=== PATIENT | male | born 1945 | race Caucasian/White ===

== ENCOUNTER 2022-08-03 14:33 | Inpatient (IN) ==
[2022-08-03] MEDS ORDERED: SODIUM CHLORIDE 0.9% 1000ML 1,000 ML IV SCH (15:00)
[2022-08-03] MEDS ORDERED: FAMOTIDINE 20MG IV PUSH 20 MG/5 ML SYR IV STA (15:21)
--- NOTE | 2022-08-03 15:26 | Emergency Department Note ---
Impression & Plan Syncope and collapse, Left rib fracture, Gastric distention ED Provider Note Provider: Mariano Kim MD DATE OF SERVICE: 08/03/2022 CHIEF COMPLAINT: Syncope, nausea and vomiting, weakness HISTORY OF PRESENT ILLNESS: Patient is a 77-year-old gentleman history distantly of colon cancer status postresection small bowel obstruction presenting here today with his . Fortunately since September of last year has been dealing with stooling issues and having frequent due to continuous diarrhea. Reports following with GI and was scheduled to have a colonoscopy today. Was in the midst of a 2-day bowel prep for this. Been using Gatorade and propylene glycol as well as Dulcolax. Has not eaten since Sunday afternoon. This morning even while hydrating but not having much stooling overnight, became lightheaded and syncopized falling to the ground striking his left head and left chest on the ground. states he was only unconscious for a few seconds but he was a bit confused for. After he awoke. Was able to arouse him and reorient him and then discussed with GI who referred him here for evaluation. Reports some stomach gurgling and cramping with some heartburn symptoms. Denies significant headache or pain in the extremities. Fairly generally weak and a bit cold. No sick cont acts reported. PAST MEDICAL HISTORY: As noted above MEDICATIONS: Reviewed home medications and has been on bowel prep SOCIAL HISTORY: and lives at home with fatigued in appearance PHYSICAL EXAM: GENERAL: alert and oriented in no acute distress on stretcher Head: normocephalic with a slight area of contusion just above the left ear without any mastoid tenderness or crepitus appreciated. EYES: No injection, discharge or icterus. PERRL, EOMI. NECK: Trachea midline. Supple without significant midline tenderness ENT: Mucous membranes pink and moist. Pharynx without erythema or exudate. LUNGS: Airway patent. No retractions. Breath sounds clear with good air entry bilaterally. HEART: Regular rate and rhythm. Some left-sided chest wall tenderness without crepitus or obvious bruising or deformity ABDOMEN: Soft and without significant guarding or rebound without significant tenderness. SKIN: Acyanotic, warm, dry, without rashes EXTREMITIES: Without swelling, tenderness or deformity except for some slight tenderness of the left shoulder with good range of motion however no obvious deformity. NEUROLOGICAL: No focal deficits. No aphasia. No facial droop or slurred speech. EK bpm sinus rhythm with first-degree AV block. No PVC or PAC noted. No acute ST segment elevation or depression with a QTc of 424. CONTINUOUS CARDIAC MONITORING: was ordered and showed a heart rate of 70s-80s bpm in normal sinus rhythm GCS 15. Patient's laboratory studies and imaging reviewed. Differential includes traumatic injury, infection, dehydration, metabolic abnormality, hypo/hyperglycemia, electrolyte disturbance, anemia, hypoxia, cardiac sources, as well as other pathologies. IMPRESSION/MEDICAL DECISION MAKING: History of continuous diarrhea on a 2-day bowel prep seems to have syncopized and became too weak after this this morning. Has not eaten in several days. Given some IV fluids as well as basic blood work checked. Given some Pepcid for heartburn. EKG and basic labs obtained. Given his fall did complete a CT of the head as well as the left chest was having some tenderness and abdominal CT given his abdominal complaints. Lower suspicion for obstruction question if he is just dehydrated and rundown from the bowel prep. No infectious symptoms reported. Basic blood work including troponin and magnesium will be completed. Given some IV fluids as well as Pepcid for symptoms. COVID checked. Nonbloody vomiting and diarrhea reported and doubt significant anemia. Chest x-ray and x- ray of the left shoulder obtained. Blood work without anemia but a leukocytosis of 15 nonspecific noted may be reactive from his vomiting and diarrhea. Mild hyponatremia of 133 with a creatinine elevated 1.5 today from baseline around 1.1. Negative COVID. Neg ative urinalysis. No signs of pancreatitis or hepatitis. No troponin elevation. CT head per radiology without acute intracranial pathology noted or bleeding. CT of the chest with left-sided third through sixth rib fractures without pneumothorax. Some esophageal inflammatory change as well as a distended stomach which the abdominal CT questions represents a low-grade chronic partial small bowel obstruction is noted. Patient is feeling somewhat better after fluid hydration. Given his multiple rib fractures with a syncope today likely induced from the bowel prep and question of a small bowel obstruction discussed with the hospitalist further care here at the hospital. Patient given some IV Tylenol but declines the need for stronger pain medicines at this point. Patient and updated. Hospitalist was comfortable keeping and discussed with general surgery who did not recommend any aggressive acute therapy or NG tube placement at this time given what appears to be some chronicity to the CT findings. DIAGNOSIS: Dehydration, fall, syncope, left-sided rib fractures, gastric distention DISPOSITION: Hospitalist will evaluate Patient was agreeable with this plan. Past Med/Surg History Medical History (Updated 08/03/22 @ 19:54 by Lali Wallace PA-C) Asthma BPH (benign prostatic hyperplasia) CKD (chronic kidney disease), stage III Colon cancer Essential tremor GERD (gastroesophageal reflux disease) HLD (hyperlipidemia) HTN (hypertension) SBO (small bowel obstruction) Surgical History (Updated 08/03/22 @ 19:54 by Lali Wallace PA-C) History of cholecystectomy History of cystoscopy History of partial colectomy sigmoid colectomy 1996 Hx of cataract extraction Hx of rotator cuff surgery Hx of transurethral resection of prostate Family History (Updated 08/03/22 @ 19:54 by Lali Wallace PA-C) Other Breast cancer Heart disease Social History (Updated 08/03/22 @ 18:55 by Lali Wallace PA-C) Smoking Status: Never smoker Hx Alcohol Use: No Hx Substance Use: No Preferred Language: Zambian marital status: Current Living Situation: Spouse Feels Safe at Home: Yes Allergies Allergies Allergy/AdvReac Type Severity Reaction Status Date / Time No Known Allergies Allergy Unverified 08/03/22 17:41 Home Meds Home Medications Medication Instructions Recorded Confirmed amlodipine 5 mg tablet 5 mg PO DAILY 08/03/22 08/03/22 aspirin 81 mg tablet,delayed 81 mg PO SUFR 08/03/22 08/03/22 release atorvastatin 20 mg tablet 20 mg PO DAILY 08/03/22 08/03/22 finasteride 5 mg tablet 5 mg PO DAILY 08/03/22 08/03/22 losartan 25 mg tablet 25 mg PO DAILY 08/03/22 08/03/22 omega 2-lgl-hpl-fish oil 1,000 mg 1 cap PO DAILY 08/03/22 08/03/22 (120 mg-180 mg) capsule (Fish Oil) omeprazole 20 mg capsule,delayed 20 mg PO DAILY 08/03/22 08/03/22 release tamsulosin 0.4 mg capsule 0.4 mg PO DAILY 08/03/22 08/03/22 trazodone 50 mg tablet 100 mg PO HS 08/03/22 08/03/22 Results & Data (ED) Vital Signs Vital Signs - 24 hr 08/03/22 14:35 08/03/22 15:40 08/03/22 15:40 Temperature 36.8 C Temperature Source Temporal Artery Scan Pulse Rate 94 H 81 Pulse Rate [Apical] 83 Pulse Rhythm Regular Pulse Rhythm [Apical] Regular Pulse Strength [Apical] Normal Respiratory Rate 16 16 16 Respiratory Effort / Characteristics Non-Labored Spontaneous Non-Labored Spontaneous Respiratory Depth Normal Normal Respiratory Pattern Regular Blood Pressure 171/65 H Blood Pressure [Left Arm] 154/65 H Blood Pressure Mean 100 Blood Pressure Mean [Left Arm] 94 Blood Pressure Position Sitting Blood Pressure Position [Left Arm] Lying Pulse Oximetry 97 97 96 Oxygen Delivery Method Room Air Room Air Room Air Sepsis Recent Fever Within 48 Hours No Sepsis New/Unexplained Change in Mental Status No Sepsis Action Taken by Nursing No Action Required 08/03/22 15:42 Temperature Temperature Source Pulse Rate 80 Pulse Rate [Apical] Pulse Rhythm Pulse Rhythm [Apical] Pulse Strength [Apical] Respiratory Rate Respiratory Effort / Characteristics Respiratory Depth Respiratory Pattern Blood Pressure Blood Pressure [Left Arm] Blood Pressure Mean Blood Pressure Mean [Left Arm] Blood Pressure Position Blood Pressure Position [Left Arm] Pulse Oximetry Oxygen Delivery Method Sepsis Recent Fever Within 48 Hours Sepsis New/Unexplained Change in Mental Status Sepsis Action Taken by Nursing Laboratory Data 08/03/22 15:15 08/03/22 15:15 Lab Results 08/03/22 08/03/22 08/03/22 Range/Units 15:15 15:15 15:15 WBC 15.73 H (4.8-10.8) K/ul RBC 5.14 (4.70-6.10) M/uL Hgb 15.7 (14.0-18.0) g/dl Hct 45.0 (42.0-52.0) % MCV 87.5 (80.0-100.0) fL MCH 30.5 (25.0-34.0) pg MCHC 34.9 (32.0-36.0) g/dL RDW Std Deviation 39.9 (36.4-46.3) fL RDW Coeff of Dayanna 12.5 (11.5-14.5) % Plt Count 220 (130-400) K/uL MPV 9.6 (9.4-12.4) fL Immature Gran % (Auto) 0.4 % Neut % (Auto) 92.5 % Lymph % (Auto) 2.5 % Harlan % (Auto) 4.5 % Eos % (Auto) 0.0 % Baso % (Auto) 0.1 % Neut # (Auto) 14.54 H (1.40-6.50) K/uL Lymph # (Auto) 0.40 L (1.2-3.4) K/uL Harlan # (Auto) 0.70 H (0.11-0.59) K/uL Eos # (Auto) 0.00 (0-0.50) K/uL Baso # (Auto) 0.02 (0-0.2) K/uL Immature Gran # (Auto) 0.07 (0.01-0.20) K/uL Sodium 133 L (136-145) mmol/L Potassium 4.2 (3.5-5.1) mmol/L Chloride 95 L (98-107) mmol/L Carbon Dioxide 22 (21-32) mmol/L Anion Gap 16 H (3-11) BUN 24 H (6-23) mg/dl Creatinine 1.57 H (0.6-1.4) mg/dl Est Cr Clr Drug Dosing 41.3 ml/min Est GFR ( Amer) 48.2 ml/min Est GFR (Non-Af Amer) 41.6 ml/min BUN/Creatinine Ratio 15.3 (10-20) Glucose 139 H (70-99(Fasting)) mg/dl Lactate (0.4-2.0) mmol/L Calcium 9.9 (8.6-10.3) mg/dl Magnesium 1.9 (1.7-2.4) mg/dl Total Bilirubin 0.9 (0.2-1.0) mg/dl AST 25 (13-39) U/L ALT 26 (7-52) U/L Alkaline Phosphatase 73 (34-104) U/L Troponin I High Sens 18.7 (0-20) pg/ml Total Protein 7.7 (6.0-8.3) gm/dl Albumin 4.6 (3.4-5.0) gm/dl Globulin 3.1 (2.5-4.0) gm/dl Albumin/Globulin Ratio 1.5 (0.9-2) Lipase 13 (11-82) U/L TSH 0.827 (0.300-4.500) uIu/ml Urine Color Urine Appearance (Clear) Urine pH (4.5-7.5) Ur Specific [place] (1.000-1.030) Urine Protein (Negative) Urine Glucose (UA) (Negative) Urine Ketones (Negative) Urine Blood (Negative) Urine Nitrite (Negative) Urine Bilirubin (Negative) Urine Urobilinogen (Negative) Ur Leukocyte Esterase (Negative) Urine WBC (Auto) (0-5) /hpf Urine RBC (Auto) (0-4) /hpf U Hyaline Cast (Auto) (0-5) /lpf U Epithel Cells (Auto) (0-5) /lpf Urine Bacteria (Auto) (Negative) SARS-CoV-2, RNA, NAAT (NEGATIVE) 08/03/22 08/03/22 08/03/22 Range/Units 15:15 15:30 15:52 WBC (4.8-10.8) K/ul RBC (4.70-6.10) M/uL Hgb (14.0-18.0) g/dl Hct (42.0-52.0) % MCV (80.0-100.0) fL MCH (25.0-34.0) pg MCHC (32.0-36.0) g/dL RDW Std Deviation (36.4-46.3) fL RDW Coeff of Dayanna (11.5-14.5) % Plt Count (130-400) K/uL MPV (9.4-12.4) fL Immature Gran % (Auto) % Neut % (Auto) % Lymph % (Auto) % [place] % (Auto) % Eos % (Auto) % Baso % (Auto) % Neut # (Auto) (1.40-6.50) K/uL Lymph # (Auto) (1.2-3.4) K/uL [place] # (Auto) (0.11-0.59) K/uL Eos # (Auto) (0-0.50) K/uL Baso # (Auto) (0-0.2) K/uL Immature Gran # (Auto) (0.01-0.20) K/uL Sodium (136-145) mmol/L Potassium (3.5-5.1) mmol/L Chloride (98-107) mmol/L Carbon Dioxide (21-32) mmol/L Anion Gap (3-11) BUN (6-23) mg/dl Creatinine (0.6-1.4) mg/dl Est Cr Clr Drug Dosing ml/min Est GFR ( Amer) ml/min Est GFR (Non-Af Amer) ml/min BUN/Creatinine Ratio (10-20) Glucose (70-99(Fasting)) mg/dl Lactate 1.8 (0.4-2.0) mmol/L Calcium (8.6-10.3) mg/dl Magnesium (1.7-2.4) mg/dl Total Bilirubin (0.2-1.0) mg/dl AST (13-39) U/L ALT (7-52) U/L Alkaline Phosphatase (34-104) U/L Troponin I High Sens (0-20) pg/ml Total Protein (6.0-8.3) gm/dl Albumin (3.4-5.0) gm/dl Globulin (2.5-4.0) gm/dl Albumin/Globulin Ratio (0.9-2) Lipase (11-82) U/L TSH (0.300-4.500) uIu/ml Urine Color Dark Yellow Urine Appearance Clear (Clear) Urine pH 5.0 (4.5-7.5) Ur Specific [place] 1.020 (1.000-1.030) Urine Protein Trace H (Negative) Urine Glucose (UA) Negative (Negative) Urine Ketones 2+ H (Negative) Urine Blood Negative (Negative) Urine Nitrite Negative (Negative) Urine Bilirubin Negative (Negative) Urine Urobilinogen Negative (Negative) Ur Leukocyte Esterase Negative (Negative) Urine WBC (Auto) 1-5 (0-5) /hpf Urine RBC (Auto) 0-4 (0-4) /hpf U Hyaline Cast (Auto) 10-30 H (0-5) /lpf U Epithel Cells (Auto) 20-30 H (0-5) /lpf Urine Bacteria (Auto) Negative (Negative) SARS-CoV-2, RNA, NAAT NEGATIVE (NEGATIVE) Administered Medications Sodium Chloride (Nss 1000ml) 1,000 mls @ 125 mls/hr IV .Q8H VIRGEN Stop: 08/03/22 22:59 Last Admin: 08/03/22 15:40 Dose: 125 mls/hr Documented By: ABDULLAHI Discontinued Medications Famotidine (Pepcid 20mg Iv Push) 20 mg in 5 mls @ 2.5 mls/min IV NOW STA Stop: 08/03/22 15:22 Last Admin: 08/03/22 15:40 Dose: 2.5 mls/min Documented By: ABDULLAHI Acetaminophen (Ofirmev) 1,000 mg in 100 mls @ 400 mls/hr IV NOW STA Stop: 08/03/22 18:07 Last Infusion: 08/03/22 18:24 Dose: 0 mls/hr Documented By: Admin: 08/03/22 18:02 Dose: 400 mls/hr Documented By: ABDULLAHI Pantoprazole Sodium 40 mg/ (Syringe) 10 mls @ 5 mls/min IV NOW ONE Stop: 08/03/22 18:29 Last Admin: 08/03/22 19:22 Dose: 5 mls/min Documented By: ABDULLAHI Ioversol (Optiray 350 100ml) 87 ml IV ONCE ONE Stop: 08/03/22 16:50 Last Admin: 08/03/22 16:50 Dose: 87 ml Documented By: TATE Imaging Data Radiologist's Impression: Chest X-Ray 08/03/22 14:57 XR chest 1V portable CLINICAL HISTORY: Weakness. Fall. COMPARISON STUDY: Chest radiograph July 27, [address] performed earlier today. FINDINGS: Lung volumes are mildly diminished. There is no pneumothorax or pleural effusion. Several acute nondisplaced left-sided rib fractures are better depicted on the chest CT performed earlier today. There is no evidence for pulmonary edema. There is no consolidation. IMPRESSION: Several acute nondisplaced left sided rib fractures better depicted on the chest CT performed earlier today. No pneumothorax. ACT 112: Negative or not required by law. Electronically signed by: Logan Hilton M.D. 08/03/2022 5:29 PM Abdomen/Pelvis CT 08/03/22 15:[address] WITH IV CONTRAST CT DOSE: HISTORY: syncope/fall, n/v, on bowel prep for colonoscopy TECHNIQUE: Multiaxial CT images of the abdomen and pelvis were performed following the use of intravenous contrast. A dose lowering technique was utilized adhering to the principles of ALARA. COMPARISON STUDY: Abdomen and pelvis CT 09/18/2021. FINDINGS: The lung bases will be reported on the same day chest CT. No pneumoperitoneum. No pneumatosis. The patient's left anterior rib fractures are better appreciated on the same day chest CT. No additional fractures identified within the abdomen or pelvis. Prior midline anterior abdominal wall incision. Redemonstration of the intestinal malrotation with the cecum and normal appendix located within the left lower quadrant. Mildly distended fluid-filled stomach and proximal small bowel is likely due to the patient's current colonoscopy prep. No transition point to suggest a bowel obstruction. No evidence for bowel wall thickening. Colonic diverticulosis. No evidence for acute diverticulitis. Mild bladder wall thickening is likely due to a combination of underdistention and the mildly enlarged prostate gland. Bilateral nephrolithiasis. No ureteral stones. No hydronephrosis. 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 Severe atrophy within the right lower pole moiety, unchanged. The gallbladder surgically absent. The liver, spleen, adrenal glands, and pancreas are within normal limits. No retroperitoneal lymphadenopathy or hematoma. Normal caliber abdominal aorta. The main portal vein is patent. No pelvic free fluid. Mild left perinephric edema, unchanged. IMPRESSION: 1. The patient's left anterior rib fractures are better appreciated on the same day chest CT. 2. Otherwise, no acute traumatic process within the abdomen or pelvis. 3. Intestinal malrotation again noted. No evidence for a bowel obstruction. 4. Bilateral nephrolithiasis. No hydronephrosis. 6. Mildly distended fluid-filled stomach and proximal small bowel is likely due to the patient's current colonoscopy prep. No transition point to suggest a bowel obstruction. 7. Additional findings as described above. ACT 112: Negative or not required by law. Electronically signed by: Lv Castro M.D. 08/03/2022 5:[address] 08/03/22 15:[address] WITH CONTRAST CT DOSE: HISTORY: fall, L rib pain TECHNIQUE: Multiaxial CT images of the chest were performed following the intravenous administration of contrast. A dose lowering technique was utilized adhering to the principles of ALARA. COMPARISON: Abdomen and pelvis CT 09/18/2021. FINDINGS: Acute nondisplaced left anterior third through sixth rib fractures. No additional fractures identified within the chest. The central airways are patent. No pneumothorax. No pleural effusions. Mild dependent changes seen at the lung bases. There are are a few scattered subpleural nodules within the lungs with the largest at the right lower lobe on image 206 measuring 5 mm. There is an additional 5 mm parenchymal nodule within the right upper lobe on image 71. No focal lung consolidations to suggest a pneumonia. No evidence for pulmonary edema. Multinodular thyroid goiter with extension of the left thyroid lobe posterior to the esophagus. This results in mild mass effect along the posterior esophagus. There is mild circumferential thickening of the esophagus suggestive of esophagitis. No mediastinal or hilar lymphadenopathy. The abdominal structures will be reported on the same day abdomen and pelvis CT. Distended and fluid-filled stomach is partially visualized. Right-sided nephrolithiasis. Prior cholecystectomy. The heart is normal in size. No pericardial effusion. Normal caliber thoracic aorta with no evidence for a d issection. The main pulmonary arteries are patent. IMPRESSION: 1. Acute nondisplaced left anterior third through sixth rib fractures. No pneumothorax. 2. Multinodular thyroid goiter with posterior extension of the left thyroid lobe which is located posterior to the esophagus. This results in mild mass effect of the esophagus. 3. Mild circumferential thickening of the esophagus is suggestive of a nonspecific esophagitis. 4. Distended and fluid-filled stomach. This is better appreciated on the same day abdomen and pelvis CT. 5. A few scattered subcentimeter pulmonary nodules measure up to 5 mm. Please refer to below summary of Fleischner criteria recommendations for follow- up of incidental CT nodules (Constance Dang, Guidelines for management of small pulmonary nodules detected on CT scans: A statement from the Fleischner Society, Radiology 237: [phone].) SOLID NODULES Solitary nodule size: <6 mm * Low risk patients: no follow-up needed * high risk patients: optional CT at 12 months Solitary nodule size: 6-8 mm * Low risk patients: follow-up at 6-12 months, then consider further follow-up at 18-24 months * high risk patients: initial follow-up CT at 6-12 months and then at 18-24 months if no change Solitary nodule size: >8 mm * either low or high risk patients - consider follow-up CT at 3 months, and/or CT-PET, and/or biopsy Multiple nodules size: <6 mm * Low risk patients: no routine follow-up * high risk patients: optional CT at 12 months Multiple nodules size: 6-8 mm * Low risk patients: follow-up at 3-6 months, then consider further follow-up at 18-24 months * high risk patients: follow-up at 3-6 months, then at 18-24 months if no change Multiple nodules size: >8 mm * Low risk patients: follow-up at 3-6 months, then consider further follow-up at 18-24 months * high risk patients: follow-up at 3-6 months, then at 18-24 months if no change Note: newly detected indeterminate nodule in persons 35 years of age or older. * Low risk patients: minimal or absent history of smoking and/or other known risk factors * high risk patients: history of smoking or of other known risk factors (e.g. first degree relative with lung cancer, or exposure to asbestos, radon, uranium) * if a nodule up to 8 mm is partly solid or is ground glass further follow-up is required after 24 months to exclude possible slow growing adenocarcinoma (RADHA) SUBSOLID NODULES Solitary pure ground-glass nodule * nodule size <6 mm - no CT follow-up required * nodule size >=6 mm - follow-up CT at 6-12 months, then every 2 years until 5 years Solitary part-solid nodule * nodule size <6 mm - no CT follow-up required * nodule size >=6 mm - follow-up CT at 3-6 months. If unchanged, and solid component remains <6 mm, then annual follow-up for 5 years Multiple subsolid nodules * nodule size <6 mm - follow-up CT at 3-6 months, consider further follow-up at 2 and 4 years if stable * nodule size >=6 mm - follow-up CT at 3-6 months, subsequent management based on the most suspicious nodule(s) ACT 112: Positive. There are findings on this exam that require communication between the performing entity and the patient following Patient Test Result Information Act ([place] Act 112) guidelines. Electronically signed by: Lv Castro M.D. 08/03/2022 5:[address] 08/03/22 15:[address] DOSE: 4472.49 mGy.cm HISTORY: fall, syncope TECHNIQUE: Multiaxial CT images of the head were performed without the use of intravenous contrast. Automated exposure control was utilized for this study. A dose lowering technique was utilized adhering to the principles of ALARA. Comparison: None. Findings: The paranasal sinuses and mastoid air cells are clear. The calvarium and skull base are intact. There is no mass, hematoma, midline shift, acute infarct. White matter hypodensity is nonspecific but suggestive of microvascular ischemic change. The ventricles and sulci demonstrate mild age-related involutional changes. Motion artifact. Impression: Motion artifact. No definite acute intracranial abnormality. ACT 112: Negative or not required by law. Electronically signed by: Lv Castro M.D. 08/03/2022 5:12 PM Shoulder X-Ray 08/03/22 15:25 XR shoulder LT min 2V routine CLINICAL HISTORY: Left shoulder pain following fall. COMPARISON: None FINDINGS: Alignment of the left shoulder is anatomic. There is no acute fracture within the left shoulder. Moderate AC joint osteoarthritis is present. Several acute nondisplaced left-sided rib fractures are better depicted on the chest CT which will be reported separately. IMPRESSION: 1. No acute fracture or dislocation within the left shoulder. 2. Several acute nondisplaced left-sided rib fractures, better depicted on the chest CT which will be reported separately. ACT 112: Negative or not required by law. Electronically signed by: Logan Hilton M.D. 08/03/2022 5:26 PM Discharge Plan Visit Data Chief Complaint: GI Assessment Stated Complaint: POSSIBLE BOWEL BLOCKAGE ED Provider: Mariano Kim Discharge Problem: Syncope and collapse, Left rib fracture, Gastric distention Patient Disposition: Admitted As Inpatient Discharge Instructions Interventions: ED Discharge Assessment Last Done: 08/03/22 20:41
[2022-08-03 15:59] LABS: Hemoglobin 15.7 g/dl (14.0-18.0); Mean Corpuscular Hemoglobin 30.5 pg (25.0-34.0); Mean Corpuscular Hgb Conc 34.9 g/dL (32.0-36.0); Mean Corpuscular Volume 87.5 fL (80.0-100.0); Mean Platelet Volume 9.6 fL (9.4-12.4); Platelet Count 220 K/uL (130-400); RDW Coefficient of Variation 12.5 % (11.5-14.5); RDW Standard Deviation 39.9 fL (36.4-46.3); Red Blood Count 5.14 M/uL (4.70-6.10); White Blood Count 15.73 K/ul (4.8-10.8)
[2022-08-03 16:09] LABS: Appearance Urine Clear (Clear); Bacteria Urine Automated Negative (Negative); Bilirubin Urine Negative (Negative); Blood Urine Negative (Negative); Color Urine Dark Yellow; Epithelial Cell Urine Auto 20-30 /lpf (0-5); Glucose Urine UA Negative (Negative); Ketones Urine 2+ (Negative); Leukocyte Esterase Urine Negative (Negative); Nitrite Urine Negative (Negative); Protein Urine Trace (Negative); RBC Urine Automated 0-4 /hpf (0-4); Urobilinogen Urine Negative (Negative)
[2022-08-03 16:13] LABS: Albumin Globulin Ratio 1.5 (0.9-2); Albumin Level 4.6 gm/dl (3.4-5.0); BUN Creatinine Ratio 15.3 (10-20); Bilirubin,Total 0.9 mg/dl (0.2-1.0); Calcium 9.9 mg/dl (8.6-10.3); Creatinine Clr Calc Pharmacy 41.3 ml/min; Est GFR (African American) 48.2 ml/min; Est GFR (Non-African American) 41.6 ml/min; Globulin 3.1 gm/dl (2.5-4.0); Magnesium 1.9 mg/dl (1.7-2.4); Potassium 4.2 mmol/L (3.5-5.1); Total Protein 7.7 gm/dl (6.0-8.3)
[2022-08-03 16:18] LABS: Basophils # (auto) 0.02 K/uL (0-0.2); Basophils % (auto) 0.1 %; Immature Granulocytes # (auto) 0.07 K/uL (0.01-0.20); Immature Granulocytes % (auto) 0.4 %; Lymphocytes % (auto) 2.5 %; Monocytes % (auto) 4.5 %; Neutrophils # (auto) 14.54 K/uL (1.40-6.50); Neutrophils % (auto) 92.5 %
[2022-08-03 16:19] LABS: Troponin I High Sensitivity 18.7 pg/ml (0-20)
[2022-08-03] MEDS ORDERED: OPTIRAY 350 100ml IV ONE (16:49)
--- NOTE | 2022-08-03 17:12 | Electrocardiogram Report ---
Test Reason : Blood Pressure : / mmHG Vent. Rate : 078 BPM Atrial Rate : 078 BPM P-R Int : 224 ms QRS Dur : 092 ms QT Int : 372 ms P-R-T Axes : 037 -13 004 degrees QTc Int : 424 ms Sinus rhythm with 1st degree A-V block possible Inferior infarct , age undetermined Abnormal ECG When compared with ECG of 14-JUL-2015 10:12, Premature supraventricular complexes are no longer Present Inferior infarct is now Present Confirmed by Tha Rey ([id number]) on 08/03/2022 5:12:07 PM Referred By: Nate Lara Confirmed By:Gabino Rey
--- NOTE | 2022-08-03 17:14 | CT Scan Report ---
HEAD CT NONCONTRAST CT DOSE: 4472.49 mGy.cm HISTORY: fall, syncope TECHNIQUE: Multiaxial CT images of the head were performed without the use of intravenous contrast. A utomated exposure control was utilized for this study. A dose lowering technique was utilized adheri ng to the principles of ALARA. Comparison: None. Findings: The paranasal sinuses and mastoid air cells are clear. The calvarium and skull base are int act. There is no mass, hematoma, midline shift, acute infarct. White matter hypodensity is nonspecifi c but suggestive of microvascular ischemic change. The ventricles and sulci demonstrate mild age-rela wilver involutional changes. Motion artifact. Impression: Motion artifact. No definite acute intracranial abnormality. ACT 112: Negative or not required by law. Electronically signed by: Lv Castro M.D. 08/03/2022 5:12 PM
--- NOTE | 2022-08-03 17:23 | CT Scan Report ---
CHEST CT WITH CONTRAST CT DOSE: HISTORY: fall, L rib pain TECHNIQUE: Multiaxial CT images of the chest were performed following the intravenous administration of contrast. A dose lowering technique was utilized adhering to the principles of ALARA. COMPARISON: Abdomen and pelvis CT 09/18/2021. FINDINGS: Acute nondisplaced left anterior third through sixth rib fractures. No additional fractures identified within the chest. The central airways are patent. No pneumothorax. No pleural effusions. Mild dependent changes seen at the lung bases. There are are a few scattered subpleural nodules withi n the lungs with the largest at the right lower lobe on image 206 measuring 5 mm. There is an additio nal 5 mm parenchymal nodule within the right upper lobe on image 71. No focal lung consolidations to suggest a pneumonia. No evidence for pulmonary edema. Multinodular thyroid goiter with extension of t he left thyroid lobe posterior to the esophagus. This results in mild mass effect along the posterior esophagus. There is mild circumferential thickening of the esophagus suggestive of esophagitis. No m ediastinal or hilar lymphadenopathy. The abdominal structures will be reported on the same day abdome n and pelvis CT. Distended and fluid-filled stomach is partially visualized. Right-sided nephrolithia sis. Prior cholecystectomy. The heart is normal in size. No pericardial effusion. Normal caliber thor acic aorta with no evidence for a dissection. The main pulmonary arteries are patent. IMPRESSION: 1. Acute nondisplaced left anterior third through sixth rib fractures. No pneumothorax. 2. Multinodular thyroid goiter with posterior extension of the left thyroid lobe which is located pos terior to the esophagus. This results in mild mass effect of the esophagus. 3. Mild circumferential thickening of the esophagus is suggestive of a nonspecific esophagitis. 4. Distended and fluid-filled stomach. This is better appreciated on the same day abdomen and pelvis CT. 5. A few scattered subcentimeter pulmonary nodules measure up to 5 mm. Please refer to below summary of Fleischner criteria recommendations for follow-up of incidental CT n odules (Constance Dang, Guidelines for management of small pulmonary nodules detected on CT scans: A sta tement from the Fleischner Society, Radiology 237: [phone].) SOLID NODULES Solitary nodule size: <6 mm * Low risk patients: no follow-up needed * high risk patients: optional CT at 12 months Solitary nodule size: 6-8 mm * Low risk patients: follow-up at 6-12 months, then consider further follow-up at 18-24 months * high risk patients: initial follow-up CT at 6-12 months and then at 18-24 months if no change Solitary nodule size: >8 mm * either low or high risk patients - consider follow-up CT at 3 months, and/or CT-PET, and/or biopsy Multiple nodules size: <6 mm * Low risk patients: no routine follow-up * high risk patients: optional CT at 12 months Multiple nodules size: 6-8 mm * Low risk patients: follow-up at 3-6 months, then consider further follow-up at 18-24 months * high risk patients: follow-up at 3-6 months, then at 18-24 months if no change Multiple nodules size: >8 mm * Low risk patients: follow-up at 3-6 months, then consider further follow-up at 18-24 months * high risk patients: follow-up at 3-6 months, then at 18-24 months if no change Note: newly detected indeterminate nodule in persons 35 years of age or older. * Low risk patients: minimal or absent history of smoking and/or other known risk factors * high risk patients: history of smoking or of other known risk factors (e.g. first degree relative with lung cancer, or exposure to asbestos, radon, uranium) * if a nodule up to 8 mm is partly solid or is ground glass further follow-up is required after 24 m onths to exclude possible slow growing adenocarcinoma (RADHA) SUBSOLID NODULES Solitary pure ground-glass nodule * nodule size <6 mm - no CT follow-up required * nodule size >=6 mm - follow-up CT at 6-12 months, then every 2 years until 5 years Solitary part-solid nodule * nodule size <6 mm - no CT follow-up required * nodule size >=6 mm - follow-up CT at 3-6 months. If unchanged, and solid component remains <6 mm, then annual follow-up for 5 years Multiple subsolid nodules * nodule size <6 mm - follow-up CT at 3-6 months, consider further follow-up at 2 and 4 years if sta ble * nodule size >=6 mm - follow-up CT at 3-6 months, subsequent management based on the most suspiciou s nodule(s) ACT 112: Positive. There are findings on this exam that require communication between the performing entity and the patient following Patient Test Result Information Act ([place] Act 112) guidelines. Electronically signed by: Lv Castro M.D. 08/03/2022 5:21 PM
--- NOTE | 2022-08-03 17:27 | XRay Report ---
XR shoulder LT min 2V routine CLINICAL HISTORY: Left shoulder pain following fall. COMPARISON: None FINDINGS: Alignment of the left shoulder is anatomic. There is no acute fracture within the left colleen ulder. Moderate AC joint osteoarthritis is present. Several acute nondisplaced left-sided rib fractur es are better depicted on the chest CT which will be reported separately. IMPRESSION: 1. No acute fracture or dislocation within the left shoulder. 2. Several acute nondisplaced left-sided rib fractures, better depicted on the chest CT which will be reported separately. ACT 112: Negative or not required by law. Electronically signed by: Logan Hilton M.D. 08/03/2022 5:26 PM
--- NOTE | 2022-08-03 17:29 | CT Scan Report ---
ABDOMEN AND PELVIS CT WITH IV CONTRAST CT DOSE: HISTORY: syncope/fall, n/v, on bowel prep for colonoscopy TECHNIQUE: Multiaxial CT images of the abdomen and pelvis were performed following the use of intrave nous contrast. A dose lowering technique was utilized adhering to the principles of ALARA. COMPARISON STUDY: Abdomen and pelvis CT 09/18/2021. FINDINGS: The lung bases will be reported on the same day chest CT. No pneumoperitoneum. No pneumatos is. The patient's left anterior rib fractures are better appreciated on the same day chest CT. No add itional fractures identified within the abdomen or pelvis. Prior midline anterior abdominal wall inci anastacio. Redemonstration of the intestinal malrotation with the cecum and normal appendix located within the left lower quadrant. Mildly distended fluid-filled stomach and proximal small bowel is likely du e to the patient's current colonoscopy prep. No transition point to suggest a bowel obstruction. No e vidence for bowel wall thickening. Colonic diverticulosis. No evidence for acute diverticulitis. Mild bladder wall thickening is likely due to a combination of underdistention and the mildly enlarged pr ostate gland. Bilateral nephrolithiasis. No ureteral stones. No hydronephrosis. 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 Severe atrophy within the right l ower pole moiety, unchanged. The gallbladder surgically absent. The liver, spleen, adrenal glands, an d pancreas are within normal limits. No retroperitoneal lymphadenopathy or hematoma. Normal caliber a bdominal aorta. The main portal vein is patent. No pelvic free fluid. Mild left perinephric edema, un changed. IMPRESSION: 1. The patient's left anterior rib fractures are better appreciated on the same day chest CT. 2. Otherwise, no acute traumatic process within the abdomen or pelvis. 3. Intestinal malrotation again noted. No evidence for a bowel obstruction. 4. Bilateral nephrolithiasis. No hydronephrosis. 6. Mildly distended fluid-filled stomach and proximal small bowel is likely due to the patient's cur rent colonoscopy prep. No transition point to suggest a bowel obstruction. 7. Additional findings as described above. ACT 112: Negative or not required by law. Electronically signed by: Lv Castro M.D. 08/03/2022 5:28 PM
--- NOTE | 2022-08-03 17:30 | XRay Report ---
XR chest 1V portable CLINICAL HISTORY: Weakness. Fall. COMPARISON STUDY: Chest radiograph July 27, [address] performed earlier today. FINDINGS: Lung volumes are mildly diminished. There is no pneumothorax or pleural effusion. Several a cute nondisplaced left-sided rib fractures are better depicted on the chest CT performed earlier toda y. There is no evidence for pulmonary edema. There is no consolidation. IMPRESSION: Several acute nondisplaced left sided rib fractures better depicted on the chest CT perf ormed earlier today. No pneumothorax. ACT 112: Negative or not required by law. Electronically signed by: Logan Hilton M.D. 08/03/2022 5:29 PM
[2022-08-03] MEDS ORDERED: ACETAMINOPHEN 1,000 MG/100 ML VIAL IV STA (17:53)
[2022-08-03] MEDS ORDERED: PANTOprazole 40 MG in SYRINGE 0 ML IV ONE (18:28)
--- NOTE | 2022-08-03 18:45 | History & Physical Report ---
Date of Service August 03, 2022 Assessment & Plan (1) Syncope and collapse: (2) Left rib fracture: (3) Gastric distention: (4) Dehydration: (5) CKD (chronic kidney disease), stage III: (6) HTN (hypertension): Plan This is a 77 yr old M who presents to hospital with hx of HTN, HLD, BPH, history of small bowel obstruction, CKD stage III, osteoporosis, essential tremor, history of colon cancer status postresection, chronic cough who presents to ED due to syncopal episode and fall earlier today. Syncope and collapse Head CT: Negative for acute abnormality Likely in setting of 2-day GI prep with evidence of dehydration on exam and laboratory studies Possible vasovagal in nature as well given GI complaint Continue to monitor on telemetry Continue IV hydration orthostatics Left anterior rib fracture, nondisplaced 3 through 6 Conservative treatment and pain control Tylenol as needed, lidocaine patch and ice 3 times daily Gastric distention Possible low-grade chronic partial small bowel obstruction Nonspecific esophagitis as noted on CT with mild circumferential thickening of esophagus Consult GI Patient is prepped for colonoscopy, will keep n.p.o. Patient complaining of difficulty with bowel habits dating back over a year History of small bowel obstruction in the past and also noted chronic partial obstruction on CT General surgery did evaluate imaging and feels this is likely a gastroenterology issue and colonoscopy required continue omeprazole HAGMA 2/2 to bowel prep and poor intake Acute renal insufficiency CKD stage III Baseline creatinine 1.3 Creatinine up to 1.57 mild hyponatremia and hypochloremia in setting of bowel prep and poor intake Continue gentle hydration with LR for additional 2 L Repeat lab in a.m. Multinodular thyroid goiter Incidental finding on CT which reveals posterior extension of the left thyroid lobe which is located posterior to the esophagus resulting in mild mass effect of esophagus Patient will need referral to endocrinology and/or ENT as outpatient for further evaluation This finding on CT was not communicated to patient due to read after seeing patient and will need relayed by a.m. provider TSH 0.827 Pulmonary nodules scattered few nodules up to 5mm recommend repeat CT chest in 1 year will need OP f/u for this HTN bp mildly elevated this evening monitor continue amlodipine and losartan Hx of colon ca s/p sigmoid resection in 1996 Dispo: tele, from home, likely to d/c home after medically stable FULL CODE PCP:Jojo A total of 75 minutes was spent with greater than 50% of that time personally viewing all current laboratory work and diagnostic imaging studies obtained in the ED. Additionally, I was able to view the patients past medication reconciliation and history with direct visualization in the patients chart. Included in the time above, a portion of that time was spent assessing the pat ient while discussing and collaborating with specialists, if necessary, and making medical decision making on treatment plan. All of the above was collaborated with Dr. Cheng. Please see addendum for further details. History of Present Illness Chief Complaint: Syncopal episode and fall earlier today. Primary Care Provider: Pankaj Uribe MD This is a 77 yr old M who presents to hospital with hx of HTN, HLD, BPH, history of small bowel obstruction, CKD stage III, osteoporosis, essential tremor, history of colon cancer status postresection, chronic cough who presents to ED due to syncopal episode and fall earlier today. He has been having difficulty since September of 2021. He has hx of colon cancer and had bowel resection in 1996. In 2012 he has hx of bowel obstruction that hospitalized him for 21 days. He is now taking miralax 4 x a day to move his bowels. Stool is mostly liquid with "flakes and size of corn." He has not had a formed stool in well over a year. He went to PCP and he suggested a colonoscopy. He has been under bowel prep the past 2 days. He has been using PEG with gatorade and ducolax. Despite all of this he hasn't had much of a bowel movement. He was suppose to have colonoscopy today. This morning he had a syncopal episode when he was getting his medicine. The room started spinning and he was grabbing for something to sit down and he blacked out before he could grab anything. Next thing he knew he was on floor. He now complains of left-sided chest discomfort with coughing. states he has been weak w/o eating the past 2 days. When saw him he was awake but pt was confused and couldn't figure out what was going on. He was suppose to be seen by Dr. Sweeney today and undergo colonoscopy, but was instead referred to ED. He denies f/c/s, chest pain, sob, cough, n/v/d, abd pain, change in bowel or urinary habits. He has urinary hesitancy at baseline but his urine output has reduced due to lack of intake. In ED patient made hemodynamically stable and mildly hypertensive. He is awaiting colonoscopy as he is frustrated for dealing with symptoms over the last 9 months to a year. Lab work notable for leukocytosis 15.7k, H&H 15.7 and 45.0, sodium 133, chloride 95, BUN 24, creatinine 1.57 glucose 139, & TSH WNL. In ED he went further imaging work-up and CT revealed acute nondisplaced left anterior third through 6 rib fractures without pneumothorax. A multinodular thyroid goiter with posterior extension of left thyroid lobe which is located posterior to the esophagus and also results in mild mass effect of esophagus. Mild circumferential thickening of the esophagus is suggestive of nonspecific esophagitis, distended and fluid-filled stomach which is better appreciated on same-day CT. Few scattered subcentimeter pulmonary nodules measuring up to [address] abdomen pelvis revealed mildly distended fluid-filled stomach and proximal small bowel which likely due to colonoscopy prep, no apparent transition point to suggest small bowel obstruction but intestinal malrotation is again noted. Allergies Allergy/AdvReac Type Severity Reaction Status Date / Time No Known Allergies Allergy Unverified 08/03/22 17:41 Home Medications Medication Instructions Recorded Confirmed Type amlodipine 5 mg tablet 5 mg PO DAILY 08/03/22 08/03/22 History aspirin 81 mg tablet,delayed 81 mg PO SUFR 08/03/22 08/03/22 History release atorvastatin 20 mg tablet 20 mg PO DAILY 08/03/22 08/03/22 History finasteride 5 mg tablet 5 mg PO DAILY 08/03/22 08/03/22 History losartan 25 mg tablet 25 mg PO DAILY 08/03/22 08/03/22 History omega 7-sfb-sqs-fish oil 1,000 mg 1 cap PO DAILY 08/03/22 08/03/22 History (120 mg-180 mg) capsule (Fish Oil) omeprazole 20 mg capsule,delayed 20 mg PO DAILY 08/03/22 08/03/22 History release tamsulosin 0.4 mg capsule 0.4 mg PO DAILY 08/03/22 08/03/22 History trazodone 50 mg tablet 100 mg PO HS 08/03/22 08/03/22 History Past Med/Surg History Medical History (Updated 08/03/22 @ 19:54 by Lali Wallace PA-C) Asthma BPH (benign prostatic hyperplasia) CKD (chronic kidney disease), stage III Colon cancer Essential tremor GERD (gastroesophageal reflux disease) HLD (hyperlipidemia) HTN (hypertension) SBO (small bowel obstruction) Surgical History (Updated 08/03/22 @ 19:54 by Lali Wallace PA-C) History of cholecystectomy History of cystoscopy History of partial colectomy sigmoid colectomy 1996 Hx of cataract extraction Hx of rotator cuff surgery Hx of transurethral resection of prostate Family History (Updated 08/03/22 @ 19:54 by Lali Wallace PA-C) Other Breast cancer Heart disease Social History (Updated 08/03/22 @ 18:55 by Lali Wallace PA-C) Smoking Status: Never smoker Hx Alcohol Use: No Hx Substance Use: No Preferred Language: Jordanian marital status: Current Living Situation: Spouse Feels Safe at Home: Yes Review of Systems Review of Systems: All systems reviewed & are unremarkable except as noted in HPI & below Physical Exam Physical Exam: Please see Dr. Cheng addendum for physical exam findings. Results & Data Results & Data Vital Signs (Past 12 Hours) Vital Signs Temp Pulse Pulse Resp BP BP Pulse Ox 08/03/22 15:42 80 08/03/22 15:40 81 16 96 08/03/22 15:40 83 16 154/65 H 97 08/03/22 14:35 36.8 C 94 H 16 171/65 H 97 O2 Del Method 08/03/22 15:42 08/03/22 15:40 Room Air 08/03/22 15:40 Room Air 08/03/22 14:35 Room Air Diagnostic Findings Chest X-Ray 08/03/22 14:57 XR chest 1V portable CLINICAL HISTORY: Weakness. Fall. COMPARISON STUDY: Chest radiograph July 27, [address] performed earlier today. FINDINGS: Lung volumes are mildly diminished. There is no pneumothorax or pleural effusion. Several acute nondisplaced left-sided rib fractures are better depicted on the chest CT performed earlier today. There is no evidence for pulmonary edema. There is no consolidation. IMPRESSION: Several acute nondisplaced left sided rib fractures better depicted on the chest CT performed earlier today. No pneumothorax. ACT 112: Negative or not required by law. Electronically signed by: Logan Hilton M.D. 08/03/2022 5:29 PM Abdomen/Pelvis CT 08/03/22 15:[address] WITH IV CONTRAST CT DOSE: HISTORY: syncope/fall, n/v, on bowel prep for colonoscopy TECHNIQUE: Multiaxial CT images of the abdomen and pelvis were performed following the use of intravenous contrast. A dose lowering technique was utilized adhering to the principles of ALARA. COMPARISON STUDY: Abdomen and pelvis CT 09/18/2021. FINDINGS: The lung bases will be reported on the same day chest CT. No pneumoperitoneum. No pneumatosis. The patient's left anterior rib fractures are better appreciated on the same day chest CT. No additional fractures identified within the abdomen or pelvis. Prior midline anterior abdominal wall incision. Redemonstration of the intestinal malrotation with the cecum and normal appendix located within the left lower quadrant. Mildly distended fluid-filled stomach and proximal small bowel is likely due to the patient's current colonoscopy prep. No transition point to suggest a bowel obstruction. No evidence for bowel wall thickening. Colonic diverticulosis. No evidence for acute diverticulitis. Mild bladder wall thickening is likely due to a combination of underdistention and the mildly enlarged prostate gland. Bilateral nephrolithiasis. No ureteral stones. No hydronephrosis. 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 Severe atrophy within the right lower pole moiety, unchanged. The gallbladder surgically absent. The liver, spleen, adrenal glands, and pancreas are within normal limits. No retroperitoneal lymphadenopathy or hematoma. Normal caliber abdominal aorta. The main portal vein is patent. No pelvic free fluid. Mild left perinephric edema, unchanged. IMPRESSION: 1. The patient's left anterior rib fractures are better appreciated on the same day chest CT. 2. Otherwise, no acute traumatic process within the abdomen or pelvis. 3. Intestinal malrotation again noted. No evidence for a bowel obstruction. 4. Bilateral nephrolithiasis. No hydronephrosis. 6. Mildly distended fluid-filled stomach and proximal small bowel is likely due to the patient's current colonoscopy prep. No transition point to suggest a bowel obstruction. 7. Additional findings as described above. ACT 112: Negative or not required by law. Electronically signed by: Lv Castro M.D. 08/03/2022 5:[address] 08/03/22 15:[address] WITH CONTRAST CT DOSE: HISTORY: fall, L rib pain TECHNIQUE: Multiaxial CT images of the chest were performed following the intravenous administration of contrast. A dose lowering technique was utilized adhering to the principles of ALARA. COMPARISON: Abdomen and pelvis CT 09/18/2021. FINDINGS: Acute nondisplaced left anterior third through sixth rib fractures. No additional fractures identified within the chest. The central airways are patent. No pneumothorax. No pleural effusions. Mild dependent changes seen at the lung bases. There are are a few scattered subpleural nodules within the lungs with the largest at the right lower lobe on image 206 measuring 5 mm. There is an additional 5 mm parenchymal nodule within the right upper lobe on image 71. No focal lung consolidations to suggest a pneumonia. No evidence for pulmonary edema. Multinodular thyroid goiter with extension of the left thyroid lobe posterior to the esophagus. This results in mild mass effect along the posterior esophagus. There is mild circumferential thickening of the esophagus suggestive of esophagitis. No mediastinal or hilar lymphadenopathy. The abdominal structures will be reported on the same day abdomen and pelvis CT. Distended and fluid-filled stomach is partially visualized. Right-sided nephrolithiasis. Prior cholecystectomy. The heart is normal in size. No pericardial effusion. Normal caliber thoracic aorta with no evidence for a dissection. The main pulmonary arteries are patent. IMPRESSION: 1. Acute nondisplaced left anterior third through sixth rib fractures. No pneumothorax. 2. Multinodular thyroid goiter with posterior extension of the left thyroid lobe which is located posterior to the esophagus. This results in mild mass effect of the esophagus. 3. Mild circumferential thickening of the esophagus is suggestive of a nonspecific esophagitis. 4. Distended and fluid-filled stomach. This is better appreciated on the same day abdomen and pelvis CT. 5. A few scattered subcentimeter pulmonary nodules measure up to 5 mm. Please refer to below summary of Fleischner criteria recommendations for follow- up of incidental CT nodules (Constance Dang, Guidelines for management of small pulmonary nodules detected on CT scans: A statement from the Fleischner Society, Radiology 237: [phone].) SOLID NODULES Solitary nodule size: <6 mm * Low risk patients: no follow-up needed * high risk patients: optional CT at 12 months Solitary nodule size: 6-8 mm * Low risk patients: follow-up at 6-12 months, then consider further follow-up at 18-24 months * high risk patients: initial follow-up CT at 6-12 months and then at 18-24 months if no change Solitary nodule size: >8 mm * either low or high risk patients - consider follow-up CT at 3 months, and/or CT-PET, and/or biopsy Multiple nodules size: <6 mm * Low risk patients: no routine follow-up * high risk patients: optional CT at 12 months Multiple nodules size: 6-8 mm * Low risk patients: follow-up at 3-6 months, then consider further follow-up at 18-24 months * high risk patients: follow-up at 3-6 months, then at 18-24 months if no change Multiple nodules size: >8 mm * Low risk patients: follow-up at 3-6 months, then consider further follow-up at 18-24 months * high risk patients: follow-up at 3-6 months, then at 18-24 months if no change Note: newly detected indeterminate nodule in persons 35 years of age or older. * Low risk patients: minimal or absent history of smoking and/or other known risk factors * high risk patients: history of smoking or of other known risk factors (e.g. first degree relative with lung cancer, or exposure to asbestos, radon, uranium) * if a nodule up to 8 mm is partly solid or is ground glass further follow-up is required after 24 months to exclude possible slow growing adenocarcinoma (RADHA) SUBSOLID NODULES Solitary pure ground-glass nodule * nodule size <6 mm - no CT follow-up required * nodule size >=6 mm - follow-up CT at 6-12 months, then every 2 years until 5 years Solitary part-solid nodule * nodule size <6 mm - no CT follow-up required * nodule size >=6 mm - follow-up CT at 3-6 months. If unchanged, and solid component remains <6 mm, then annual follow-up for 5 years Multiple subsolid nodules * nodule size <6 mm - follow-up CT at 3-6 months, consider further follow-up at 2 and 4 years if stable * nodule size >=6 mm - follow-up CT at 3-6 months, subsequent management based on the most suspicious nodule(s) ACT 112: Positive. There are findings on this exam that require communication between the performing entity and the patient following Patient Test Result Information Act ([place] Act 112) guidelines. Electronically signed by: Lv Castro M.D. 08/03/2022 5:[address] 08/03/22 15:[address] DOSE: 4472.49 mGy.cm HISTORY: fall, syncope TECHNIQUE: Multiaxial CT images of the head were performed without the use of intravenous contrast. Automated exposure control was utilized for this study. A dose lowering technique was utilized adhering to the principles of ALARA. Comparison: None. Findings: The paranasal sinuses and mastoid air cells are clear. The calvarium and skull base are intact. There is no mass, hematoma, midline shift, acute infarct. White matter hypodensity is nonspecific but suggestive of microvascular ischemic change. The ventricles and sulci demonstrate mild age-related involutional changes. Motion artifact. Impression: Motion artifact. No definite acute intracranial abnormality. ACT 112: Negative or not required by law. Electronically signed by: Lv Castro M.D. 08/03/2022 5:12 PM Shoulder X-Ray 08/03/22 15:25 XR shoulder LT min 2V routine CLINICAL HISTORY: Left shoulder pain following fall. COMPARISON: None FINDINGS: Alignment of the left shoulder is anatomic. There is no acute fracture within the left shoulder. Moderate AC joint osteoarthritis is present. Several acute nondisplaced left-sided rib fractures are better depicted on the chest CT which will be reported separately. IMPRESSION: 1. No acute fracture or dislocation within the left shoulder. 2. Several acute nondisplaced left-sided rib fractures, better depicted on the chest CT which will be reported separately. ACT 112: Negative or not required by law. Electronically signed by: Logan Hilton M.D. 08/03/2022 5:26 PM Medications Administered Medication List Sodium Chloride (Nss 1000ml) 1,000 mls @ 125 mls/hr IV .Q8H VIRGEN Stop: 08/03/22 22:59 Last Admin: 08/03/22 15:40 Dose: 125 mls/hr Documented By: CAA Discontinued Medications Famotidine (Pepcid 20mg Iv Push) 20 mg in 5 mls @ 2.5 mls/min IV NOW STA Stop: 08/03/22 15:22 Last Admin: 08/03/22 15:40 Dose: 2.5 mls/min Documented By: ABDULLAHI Acetaminophen (Ofirmev) 1,000 mg in 100 mls @ 400 mls/hr IV NOW STA Stop: 08/03/22 18:07 Last Infusion: 08/03/22 18:24 Dose: 0 mls/hr Documented By: Admin: 08/03/22 18:02 Dose: 400 mls/hr Documented By: ABDULLAHI Ioversol (Optiray 350 100ml) 87 ml IV ONCE ONE Stop: 08/03/22 16:50 Last Admin: 08/03/22 16:50 Dose: 87 ml Documented By: TATE ECG Rate (beats per minute): 78 Rhythm: normal sinus Findings: + 1st degree AV block COVID-19 Results Results COVID-19 Adm Lab Results: RBC 5.14 M/uL (4.70-6.10) 08/03/22 WBC 15.73 K/ul (4.8-10.8) H 08/03/22 Hgb 15.7 g/dl (14.0-18.0) 08/03/22 Hct 45.0 % (42.0-52.0) 08/03/22 Plt Count 220 K/uL (130-400) 08/03/22 Neutrophils (%) (Auto) 92.5 % 08/03/22 Lymphocytes (%) (Auto) 2.5 % 08/03/22 Monocytes # (Auto) 0.70 K/uL (0.11-0.59) H 08/03/22 Eosinophils # (Auto) 0.00 K/uL (0-0.50) 08/03/22 Immature Granulocyte % (Auto) 0.4 % 08/03/22 Neutrophils # (Auto) 14.54 K/uL (1.40-6.50) H 08/03/22 Lymphocytes # (Auto) 0.40 K/uL (1.2-3.4) L 08/03/22 Monocytes # (Auto) 0.70 K/uL (0.11-0.59) H 08/03/22 Eosinophils # (Auto) 0.00 K/uL (0-0.50) 08/03/22 Basophils # (Auto) 0.02 K/uL (0-0.2) 08/03/22 Immature Granulocyte # (Auto) 0.07 K/uL (0.01-0.20) 3 Na 133 mmol/L (136-145) L 08/03/22 K 4.2 mmol/L (3.5-5.1) 08/03/22 Cl 95 mmol/L (98-107) L 08/03/22 CO2 22 mmol/L (21-32) 08/03/22 Anion Gap 16 (3-11) H 08/03/22 BUN 24 mg/dl (6-23) H 08/03/22 Creatinine 1.57 mg/dl (0.6-1.4) H 08/03/22 BUN/Creatinine Ratio 15.3 (10-20) 08/03/22 Glucose Level 139 mg/dl (70-99(Fasting)) H 08/03/22 Ca 9.9 mg/dl (8.6-10.3) 08/03/22 Total Bilirubin 0.9 mg/dl (0.2-1.0) 08/03/22 AST/SGOT 25 U/L (13-39) 08/03/22 ALT/SGPT 26 U/L (7-52) 08/03/22 Alkaline Phosphatase 73 U/L (34-104) 08/03/22 Total Protein 7.7 gm/dl (6.0-8.3) 08/03/22 Albumin 4.6 gm/dl (3.4-5.0) 08/03/22 Globulin 3.1 gm/dl (2.5-4.0) 08/03/22 Albumin/Globulin Ratio 1.5 (0.9-2) 08/03/22 SARS-CoV-2, RNA, NAAT NEGATIVE (NEGATIVE) 08/03/[address] 08/03/22 Chest X-Ray 08/03/22 Code Status & VTE Plan Code Status FULL CODE Supervising Physician Co-Signing Physician Notes History and physical exam performed by me. History notable for 77-year-old man with history of colon cancer In 97 status post resection, partial SBO requiring 3 weeks hospitalization in 2013 who has been having about a year of worsening constipation with pasty pencillike bowel movement and was being prepped for colonoscopy. Patient had been taking 2-day prep for the past 2 days in preparation for colonoscopy that was scheduled for today. However, patient had a syncopal episode at home this morning. Then he went to his colonoscopy and he was sent to the ER. Patient currently reports left lower rib pain usually with burping. Denies any cough, shortness of breath, pain anywhere else. On exam, General: Elderly man in no distress Eyes: PERRL, conjunctivae normal, not pale, anicteric sclerae, EOM intact bilaterally ENMT: External ear and nose normal, oropharynx normal Respiratory: Normal respiratory effort, no respiratory distress, lungs clear to auscultation, no crackles and no wheezes Cardiovascular: RRR S1 S2 Chest (Breasts): Tenderness over left lower rib cage Gastrointestinal (Abdomen): Abdomen is not distended, soft, non-tender to palpation, no guarding, no palpable hepatosplenomegaly, normal bowel sounds Musculoskeletal: No pedal edema Neurologic: Alert and oriented x 3, No focal weakness, sensation grossly intact Psychiatric: Euthymic affect Labs notable for WBC of 15.7, sodium of 133, chloride of 95, creatinine of 1.57 [baseline of 1.3]. Shoulder x-ray did not show any acute fracture or dislocation of the left shoulder but noted acute nondisplaced left-sided rib fractures. Chest CT noted acute nondisplaced left and anterior third through sixth rib fracture, no pneumothorax, multinodular thyroid goiter with posterior extension of the left thyroid lobe which is located posterior to the esophagus this results in mild mass effect of the esophagus, mild circumferential thickening of the esophagus suggestive of nonspecific esophagitis, distended and fluid-filled stomach. CT abdomen pelvis noted intestinal malrotation again noted, bilateral nephrolithiasis without hydronephrosis, mildly distended fluid-filled stomach and proximal small bowel likely due to patient's current colonoscopy prep. Addendum on the CT abdomen and pelvis noted that compared to the prior study the mildly distended and fluid-filled stomach and proximal to mid small bowel s uggest the possibility of low-grade chronic partial small bowel obstruction the distal small bowel was decompressed this is nearly identical to abdominal and pelvis CT from 09/18/2021. Syncopal episode is likely from dehydration from prep. Possibly vasovagal considering GI pathology. Mild FALGUNI. We will continue IV fluids for now. GI consult Since patient had finished 2-day prep for colonoscopy, will keep n.p.o. past midnight for GI to determine if colonoscopy will be done while inpatient. Patient is currently on room air. Noted rib fractures and not displaced. Monitor while inpatient. Continue home medicine. Other plans as detailed by Lali Wallace PA-C
[2022-08-03] MEDS ORDERED: POLYETHYLENE (MIRALAX) 17 GM PACK PO PRN (21:35)
[2022-08-03] MEDS ORDERED: ALUMINUM/MAGNESIUM SUSP 30 ML UDC PO PRN (21:35)
[2022-08-03] MEDS ORDERED: ONDANSETRON INJ 2 MG/ML 2 ML VIAL IV PRN (21:35)
[2022-08-03] MEDS: ACETAMINOPHEN 325 MG TAB PO PRN (22:20)
[2022-08-03] MEDS: LACTATED RINGER'S 1,000 ML IV SCH (22:22)
[2022-08-03] MEDS: LIDOCAINE 5% 1 PATCH TD SCH (23:20)
[2022-08-03] MEDS: traZODone HCL 100 MG TAB PO SCH (23:21)
[2022-08-04 06:39] LABS: Basophils # (auto) 0.01 K/uL (0-0.2); Basophils % (auto) 0.1 %; Eosinophils # (auto) 0.02 K/uL (0-0.50); Eosinophils % (auto) 0.2 %; Hematocrit (blood only) 37.3 % (42.0-52.0); Hemoglobin 13.2 g/dl (14.0-18.0); Immature Granulocytes # (auto) 0.05 K/uL (0.01-0.20); Immature Granulocytes % (auto) 0.4 %; Lymphocytes # (auto) 0.97 K/uL (1.2-3.4); Lymphocytes % (auto) 8.4 %; Mean Corpuscular Hemoglobin 30.3 pg (25.0-34.0); Mean Corpuscular Hgb Conc 35.4 g/dL (32.0-36.0); Mean Corpuscular Volume 85.6 fL (80.0-100.0); Mean Platelet Volume 9.7 fL (9.4-12.4); Monocytes # (auto) 1.12 K/uL (0.11-0.59); Monocytes % (auto) 9.7 %; Neutrophils # (auto) 9.36 K/uL (1.40-6.50); Neutrophils % (auto) 81.2 %; Platelet Count 173 K/uL (130-400); RDW Coefficient of Variation 12.8 % (11.5-14.5); RDW Standard Deviation 39.8 fL (36.4-46.3); Red Blood Count 4.36 M/uL (4.70-6.10); White Blood Count 11.53 K/ul (4.8-10.8)
[2022-08-04 07:02] LABS: Albumin Globulin Ratio 1.6 (0.9-2); Albumin Level 3.6 gm/dl (3.4-5.0); BUN Creatinine Ratio 17.6 (10-20); Bilirubin,Total 0.6 mg/dl (0.2-1.0); Calcium 8.6 mg/dl (8.6-10.3); Creatinine Clr Calc Pharmacy 51.9 ml/min; Est GFR (African American) 63.5 ml/min; Est GFR (Non-African American) 54.8 ml/min; Globulin 2.3 gm/dl (2.5-4.0); Magnesium 1.8 mg/dl (1.7-2.4); Potassium 4.1 mmol/L (3.5-5.1); Total Protein 5.9 gm/dl (6.0-8.3)
[2022-08-04] MEDS: TAMSULOSIN HCL 0.4 MG CAP PO SCH (08:52)
[2022-08-04] MEDS: ATORVASTATIN 20 MG TAB PO SCH (08:52)
[2022-08-04] MEDS: LOSARTAN POTASSIUM 25 MG TAB PO SCH (08:52)
[2022-08-04] MEDS: PANTOprazole 40 MG TAB PO SCH (08:53)
[2022-08-04] MEDS: amLODIPine BESYLATE 5 MG TAB PO SCH (08:53)
[2022-08-04] MEDS: FINASTERIDE 5 MG TAB PO SCH (08:53)
[2022-08-04] MEDS ORDERED: Nursing to Pharmacy Communication SCH (09:45)
[2022-08-04] MEDS: LACTATED RINGER'S 1,000 ML IV SCH (10:54)
--- NOTE | 2022-08-04 11:38 | Gastrointestinal Consultation ---
Date of Consultation August 04, 2022 Assessment & Plan (1) SBO (small bowel obstruction): Pt is a 77 yo male w hx of colon ca s/p resection, intestinal malrotation, chronic constipation who presented to ED after having syncopal episode and fall yesterday. He had been taking colonoscopy prep for his scheduled procedure yesterday and was passing small amts of liquid stools, having abd discomfort, n/v. His OP colonoscopy had been cancelled yesterday given pt's admission. On eval, noted to have L ribs fracture and also fluid filled, distended stomach & small bowels suggestive of partial SBO. He denies n/v currently, is passing liquid stools overnight but no flatus. On exam, abd soft and not distended, non tender, + BS on L side of abd. - KUB today & daily until partial SBO resolved - NGT if he's having n/v - Avoid narcotics, keep K >4 to promote GI motility, encourage ambulation and OOB - Defer colonoscopy given partial SBO - Will try to manage partial SBO conservatively, however would appreciate Surgery to be consulted should pt become completely obstructed - Consider suppository vs enema to stimulate BM rectally - Will arrange EGD and Colonoscopy in about 2 week's time in outpt setting with Dr. Sweeney after pt's acute issues have resolved Supervising Physician Co-Signing Physician Notes I personally saw and evaluated the patient on 08/04/2022 with FARRUKH Olivares and agree with her findings and plan of care. 77 y/o M with remote history of colon cancer in 1996 s/p resection, history of small bowel obstruction in the past with surgical intervention per patient (most recent SBO last year), intestinal malrotation who presented to ED yesterday after syncope after bowel prep with findings of rib fractures on imaging and a chronic partial SBO. Reports when he tried to prep for his outpatient colonoscopy he was having alot of nausea, vomiting, heartburn, and belching without passing any stool or gas. today he states he did have some liquid bowel movements this AM. he is no longer having nausea or vomiting and is tolerating some liquids. KUB today with unchanged dilation. On physical exam abdomen is soft, mildly distended, non-tender. We will arrange outpatient EGD and colonoscopy in 2 weeks. Would recommend surgical consult given findings of SBO on imaging. He does not want an NG tube and given he has no symptoms of nausea or vomiting can hold off at this time. Daily KUB. Avoid narcotics. Enid Mirza DO Gastroenterology and Hepatology History of Present Illness Reason for Consultation: Partial SBO Requesting Physician: Dr. Damien Quinn Attending Physician: Dr. Enid Mirza History of Present Illness Pt is a 77 yo male w PMHx of HTN, HLD, BPH, CKD III, OP, colon ca s/p resection in 1996, who presented to ED yesterday after having syncopal episode and fall. He had hx of bowel obstructions, congenital intestinal malrotation and was having chronic constipation w thin caliber stools despite taking 6 capfuls of ClearLax daily & Dulcolax PRN, weight loss. He was scheduled for colonoscopy by Dr. Sweeney yesterday for further workup. He took the colonoscopy bowel prep and passing only small amts of liquid stool, feeling that he is having abdominal discomfort, also had n/v. Yesterday morning, he was getting his meds but had syncopal episode and fell. Colonoscopy was cancelled and he came into ED. Noted to to have L ribs fracture on CT scan. CT abdomen and pelvis also showed mildly distended fluid-filled stomach and proximal to mid small bowel loops suggestive of partial small bowel obstruction, with intestinal malrotation. No clear t ransition point. On examination, patient noted to be comfortably laying on his bed, awake, alert, oriented x3. He had been passing small amounts of liquid stools throughout the night but no flatus. Denies any nausea or vomiting, nor abdominal pain. Allergies Allergy/AdvReac Type Severity Reaction Status Date / Time No Known Allergies Allergy Unverified 08/03/22 17:41 Home Medications Medication Instructions Recorded Confirmed Type amlodipine 5 mg tablet 5 mg PO DAILY 08/03/22 08/03/22 History aspirin 81 mg tablet,delayed 81 mg PO SUFR 08/03/22 08/03/22 History release atorvastatin 20 mg tablet 20 mg PO DAILY 08/03/22 08/03/22 History finasteride 5 mg tablet 5 mg PO DAILY 08/03/22 08/03/22 History losartan 25 mg tablet 25 mg PO DAILY 08/03/22 08/03/22 History omega 4-fub-wga-fish oil 1,000 mg 1 cap PO DAILY 08/03/22 08/03/22 History (120 mg-180 mg) capsule (Fish Oil) omeprazole 20 mg capsule,delayed 20 mg PO DAILY 08/03/22 08/03/22 History release tamsulosin 0.4 mg capsule 0.4 mg PO DAILY 08/03/22 08/03/22 History trazodone 50 mg tablet 100 mg PO HS 08/03/22 08/03/22 History Patient History Medical History Asthma BPH (benign prostatic hyperplasia) CKD (chronic kidney disease), stage III Colon cancer Essential tremor GERD (gastroesophageal reflux disease) HLD (hyperlipidemia) HTN (hypertension) SBO (small bowel obstruction) Surgical History History of cholecystectomy History of cystoscopy History of partial colectomy sigmoid colectomy 1996 Hx of cataract extraction Hx of rotator cuff surgery Hx of transurethral resection of prostate Family History Other Breast cancer Heart disease Social History Smoking Status: Never smoker Second Hand Exposure: No; Do You Dip or Chew Tobacco: No; Tobacco Cessation Education Requested by Patient: No Hx Alcohol Use: No Hx Substance Use: No Preferred Language: Kyrgyz Communication Ability: Effective 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 Beliefs That Will Affect Care: None marital status: Current Living Situation: Spouse Other Information That Helps Us Care for You: No Feels Safe at Home: Yes Safety Concerns: Feels Safe At This Time Assistive Devices: None Review of Systems Review of Systems: All systems reviewed & are unremarkable except as noted in HPI & below Physical Exam Constitutional: WD/WN, vitals as above well groomed, cooperative and comfortable Eyes: PERRL, conjunctivae normal, anicteric sclerae ENMT: external ear and nose normal, oropharynx normal Respiratory: normal respiratory effort, lungs clear to auscultation Cardiovascular: RRR, no murmur, no edema Gastrointestinal (Abdomen): Soft, non tender, + BS mostly on L side of abd Skin: no rashes, warm and dry no jaundice Psychiatric: A+Ox3, euthymic affect Lymphatic: no lymphedema Results & Data Vital Signs (Past 12 Hours) Vital Signs Temp Pulse Pulse Pulse Resp BP Pulse Ox 08/04/22 07:31 36.9 C 79 18 145/66 H 95 08/04/22 07:05 73 08/04/22 03:58 36.9 C 86 18 162/87 H 95 08/04/22 00:00 37.0 C 87 18 157/68 H 94 O2 Del Method 08/04/22 07:31 Room Air 08/04/22 07:05 08/04/22 03:58 Room Air 08/04/22 00:00 Room Air
--- NOTE | 2022-08-04 12:10 | XRay Report ---
KUB CLINICAL HISTORY: re-eval bowel obstruction COMPARISON STUDY: CT of the abdomen and pelvis August 03, 2022. FINDINGS: Contrast within the bladder from recent contrast-enhanced CT is noted. Multiple loops of mi ldly dilated small bowel are again noted. The appearance is similar to prior CT. Cholecystectomy clip s are incidentally noted. There are phleboliths within the pelvis. IMPRESSION: No change in moderate small bowel dilatation. This favors a small bowel obstruction. An ileus could appear similar although is considered less likely. ACT 112: Negative or not required by law. Electronically signed by: Logan Hilton M.D. 08/04/2022 12:08 PM
[2022-08-04] MEDS: LIDOCAINE 5% 1 PATCH TD SCH ×2 (13:41→21:13)
--- NOTE | 2022-08-04 14:55 | Hospitalist Progress Note ---
Date of Service August 04, 2022 Assessment & Plan (1) Syncope and collapse: (2) Left rib fracture: (3) Gastric distention: (4) Dehydration: (5) CKD (chronic kidney disease), stage III: (6) HTN (hypertension): Plan 77 yr old M who presents to hospital with hx of HTN, HLD, BPH, history of small bowel obstruction, CKD stage III, osteoporosis, essential tremor, history of colon cancer s/p resection, chronic cough who presents to ED 08/03 due to syncopal episode and fall while standing followed by vomiting. He is being managed for the following: Syncope and collapse Admitting Head CT: Negative for acute abnormality Likely in setting of 2-day GI prep with evidence of dehydration on exam at presentation Possible vasovagal in nature as well given GI complaint Continue to monitor on telemetry, Continue IV hydration orthostatics. Left anterior rib fracture, nondisplaced 3 through 6 Conservative treatment and pain control Tylenol as needed, lidocaine patch and ice 3 times daily Gastric distention Low-grade chronic partial small bowel obstruction Nonspecific esophagitis as noted on CT with mild circumferential thickening of esophagus Hx of colon ca s/p sigmoid resection in 1996 Patient was prepped for colonoscopy but passed out [see above] prior to colonoscopy. Patient complaining of difficulty with bowel habits dating back over a year History of small bowel obstruction in the past and also noted chronic partial obstruction on CT General surgery did evaluate imaging and feels this is likely a gastroenterology issue and colonoscopy required continue omeprazole GI evaluated, discussed with GIwe will start on clears today, KUB daily and suppositories. Maintain electrolytes normal limit, encourage ambulation, follow-up GI for EGD and colonoscopy in about 2 weeks. If not improving, consider surgery consult. Multinodular thyroid goiter Incidental finding on CT which reveals posterior extension of the left thyroid lobe which is located posterior to the esophagus resulting in mild mass effect of esophagus Patient will need referral to endocrinology and/or ENT as outpatient for further evaluation TSH wnl. Pulmonary nodules scattered few nodules up to 5mm recommend repeat CT chest in 1 year will need OP f/u for this Acute renal insufficiency CKD stage III Baseline creatinine 1.3, 1.57 at presentation. s/p ivf, resolved. HTN bp mildly elevated this evening monitor continue amlodipine and losartan Dispo: tele, from home, likely to d/c home after medically stable, will follow KUB for now and adat based on clinical improvement. FULL CODE PCP:Jojo Admission and Anticipated Discharge Date Admission Date: August 03, 2022 Subjective Patient seen and examined at bedside as a follow-up of syncope and collapse likely vasovagal in nature and left anterior rib fracture secondary to fall and low-grade chronic partial small bowel obstruction. Patient was lying in bed, on room air, NAD, denies fever or headache or dizziness chills or sore throat or cough or belly pain, denies moving gas or moving bowels today, had a small bowel movement yesterday per patient. Physical Exam Physical Exam: GENERAL: Alert and oriented x3. NAD, on RA. HEENT: No pallor, no icterus. Pupils equal, round and reactive to light. Oral mucosa moist. NECK: No JVD, no neck masses. HEART: S1 and S2 heard. Regular rate and rhythm. No murmur, no gallop. Left chest tender; no open wound or laceration RESPIRATORY SYSTEM: Normal AP diameter. No accessory muscle use. No wheezing, no crackles. ABDOMEN: Soft, bowel sounds present, nontender, no distention. Old healed surgical scar noted. CENTRAL NERVOUS SYSTEM: No facial droop. Speech is clear. Obeys simple commands. Moves extremities. EXTREMITIES: No edema, no erythema seen. Results & Data Results & Data Vital Signs (Past 12 Hours) Vital Signs Temp Pulse Pulse Resp BP Pulse Ox O2 Del Method 08/04/22 11:36 36.7 C 75 18 148/67 H 96 Room Air 08/04/22 07:31 36.9 C 79 18 145/66 H 95 Room Air 08/04/22 07:05 73 08/04/22 03:58 36.9 C 86 18 162/87 H 95 Room Air
[2022-08-04] MEDS: bisacodyL 10 MG SUPP PR SCH (14:59)
--- NOTE | 2022-08-04 16:31 | Surgery Consultation ---
Date of Consultation August 04, 2022 Assessment & Plan (1) SBO (small bowel obstruction): This is a 77y M with a PMH of HTN, CKD, h/o colon ca s/p resection, intestinal malrotation, h/o SBO resulting in ex lap and lysis of adhesions in 2013 who presents to the [facility] ED on 08/03/22 after a fall. All of this occurred around the time of patient undergoing colonoscopy prep. This was associated with some nausea/vomiting. Bowel movements not running clear. In the ER he underwent a CT that revealed multiple rib fractures on the L side. Also showed a mildly distended fluid-filled stomach and proximal small bowel is likely due to the patient's current colonoscopy prep. No transition point to suggest a bowel obstruction. KUB today showed n change in moderate small bowel dilatation. This favors a small bowel obstruction, but an ileus could appear similar. On exam patient's abdomen is soft, non tender, non distended. Vitals are stable. From our standpoint patient may continue on clears for now. If return of nausea/vomiting may need to consider NGT tube. Hopeful he will improve with supportive care and avoid operation. Supervising Physician Co-Signing Physician Notes Patient seen and examined, labs and imaging reviewed, agree with above. 77-year-old male with history of colon resection for adenocarcinoma, history of laparoscopic cholecystectomy, history of laparotomy with lysis of adhesions and [place]'s bands for bowel obstruction malrotation, presented to the emergency department after a fall. Yesterday morning he woke and when taking his medications he felt lightheaded and fell to the ground. He had pain in his left side. He was scheduled for colonoscopy when began taking his bowel prep after this fall. He was only having very small bowel movements that were liquid and never cleared up. He was feeling some discomfort. He went to the emergency department was diagnosed with a rib fracture and there was a ileus versus chronic partial small bowel obstruction on imaging. He has been having bowel movements but did not pass much gas. He longer has any nausea or vomiting, and denies any abdominal pain. On exam he is afebrile with stable vitals. His abdomen is soft, nontender, mildly distended. Incision without hernia. Labs unremarkable. CT scan personally reviewed and interpreted by myself and there is a dilated stomach and proximal bowel with a gentle taper to decompressed bowel. Within the colon there is air followed by liquid. This may represent a partial small bowel obstruction. However he does not have any pain. We will hold off on NG tube for now. No indication for surgery at this time. We will attempt to treat this conservatively to get his colonoscopy as an outpatient. Surgery will follow, call with questions or concerns. History of Present Illness Attending Physician: Damien Quinn MD History of Present Illness This is a 77y M with a PMH of HTN, CKD, h/o colon ca s/p resection, intestinal malrotation, who presents to the [facility] ED on 08/03/22 after a fall. Apparently patient was heading to the kitchen to take his colonoscopy prep when he felt lightheaded and he fell to the ground. He remembers hitting his ribs during the fall. After he came to he resumed taking his prep for colonoscopy. He reports a history of non-formed stools. He takes miralax up to 3-4x/day for BMs. During his prep he said his bowel movements never cleared up and were a muddy brown. In the ER he underwent a CT that revealed multiple rib fractures on the L side. Also showed a mildly distended fluid-filled stomach and proximal small bowel is likely due to the patient's current colonoscopy prep. No transition point to suggest a bowel obstruction. KUB today showed no change in moderate small bowel dilatation. This favors a small bowel obstruction. An ileus could appear similar although is considered less likely. He does report some nausea/vomiting x2 after he took his bowel prep. Was passing gas prior to prep but not now. Has past surgical history as well for an SBO resulting in ex lap and lysis of adhesions in 2013 performed here. Allergies Allergy/AdvReac Type Severity Reaction Status Date / Time No Known Allergies Allergy Unverified 08/03/22 17:41 Home Medications Medication Instructions Recorded Confirmed Type amlodipine 5 mg tablet 5 mg PO DAILY 08/03/22 08/03/22 History aspirin 81 mg tablet,delayed 81 mg PO SUFR 08/03/22 08/03/22 History release atorvastatin 20 mg tablet 20 mg PO DAILY 08/03/22 08/03/22 History finasteride 5 mg tablet 5 mg PO DAILY 08/03/22 08/03/22 History losartan 25 mg tablet 25 mg PO DAILY 08/03/22 08/03/22 History omega 4-tdf-aed-fish oil 1,000 mg 1 cap PO DAILY 08/03/22 08/03/22 History (120 mg-180 mg) capsule (Fish Oil) omeprazole 20 mg capsule,delayed 20 mg PO DAILY 08/03/22 08/03/22 History release tamsulosin 0.4 mg capsule 0.4 mg PO DAILY 08/03/22 08/03/22 History trazodone 50 mg tablet 100 mg PO HS 08/03/22 08/03/22 History Patient History Medical History Asthma BPH (benign prostatic hyperplasia) CKD (chronic kidney disease), stage III Colon cancer Essential tremor GERD (gastroesophageal reflux disease) HLD (hyperlipidemia) HTN (hypertension) SBO (small bowel obstruction) Surgical History History of cholecystectomy History of cystoscopy History of partial colectomy sigmoid colectomy 1996 Hx of cataract extraction Hx of rotator cuff surgery Hx of transurethral resection of prostate Family History Other Breast cancer Heart disease Social History Smoking Status: Never smoker Second Hand Exposure: No; Do You Dip or Chew Tobacco: No; Tobacco Cessation Education Requested by Patient: No Hx Alcohol Use: No Hx Substance Use: No Preferred Language: Albanian Communication Ability: Effective 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 holds L ribs intermittently due to pain Respiratory: normal respiratory effort Gastrointestinal (Abdomen): Inspection/Auscultation: + abdominal surgical scar (multiple abdominal surgical scars) Percussion/Palpation: abdomen soft; abdomen nontender Results & Data Vital Signs (Past 12 Hours) Vital Signs Temp Pulse Pulse Resp BP Pulse Ox O2 Del Method 08/04/22 15:51 85 08/04/22 15:16 37.0 C 86 18 96 Room Air 08/04/22 11:36 36.7 C 75 18 148/67 H 96 Room Air 08/04/22 07:31 36.9 C 79 18 145/66 H 95 Room Air 08/04/22 07:05 73 Diagnostic Findings KUB CLINICAL HISTORY: re-eval bowel obstruction COMPARISON STUDY: CT of the abdomen and pelvis August 03, 2022. FINDINGS: Contrast within the bladder from recent contrast-enhanced CT is noted. Multiple loops of mildly dilated small bowel are again noted. The appearance is similar to prior CT. Cholecystectomy clips are incidentally noted. There are phleboliths within the pelvis. IMPRESSION: No change in moderate small bowel dilatation. This favors a small bowel obstruction. An ileus could appear similar although is considered less likely. ACT 112: Negative or not required by law. Electronically signed by: Logan Hilton M.D. 08/04/2022 12:08 PM ADDENDUM Compared to the prior study the mildly distended and fluid-filled stomach and proximal to mid small bowel loops suggest the possibility low-grade chronic partial small bowel obstruction. The distal small bowel loops are decompressed. This nearly identical to the 09/18/[address] Electronically signed by: Lv Castro M.D. 08/03/2022 5:32 PM ADDENDUM END ABDOMEN AND PELVIS CT WITH IV CONTRAST CT DOSE: HISTORY: syncope/fall, n/v, on bowel prep for colonoscopy TECHNIQUE: Multiaxial CT images of the abdomen and pelvis were performed following the use of intravenous contrast. A dose lowering technique was utilized adhering to the principles of ALARA. COMPARISON STUDY: Abdomen and pelvis CT 09/18/2021. FINDINGS: The lung bases will be reported on the same day chest CT. No pneumoperitoneum. No pneumatosis. The patient's left anterior rib fractures are better appreciated on the same day chest CT. No additional fractures identified within the abdomen or pelvis. Prior midline anterior abdominal wall incision. Redemonstration of the intestinal malrotation with the cecum and normal appendix located within the left lower quadrant. Mildly distended fluid-filled stomach and proximal small bowel is likely due to the patient's current colonoscopy prep. No transition point to suggest a bowel obstruction. No evidence for bowel wall thickening. Colonic diverticulosis. No evidence for acute diverticulitis. Mild bladder wall thickening is likely due to a combination of underdistention and the mildly enlarged prostate gland. Bilateral nephrolithiasis. No ureteral stones. No hydronephrosis. 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 Severe atrophy within the right lower pole moiety, unchanged. The gallbladder surgically absent. The liver, spleen, adrenal glands, and pancreas are within normal limits. No retroperitoneal lymphadenopathy or hematoma. Normal caliber abdominal aorta. The main portal vein is patent. No pelvic free fluid. Mild left perinephric edema, unchanged. IMPRESSION: 1. The patient's left anterior rib fractures are better appreciated on the same day chest CT. 2. Otherwise, no acute traumatic process within the abdomen or pelvis. 3. Intestinal malrotation again noted. No evidence for a bowel obstruction. 4. Bilateral nephrolithiasis. No hydronephrosis. 6. Mildly distended fluid-filled stomach and proximal small bowel is likely due to the patient's current colonoscopy prep. No transition point to suggest a bowel obstruction. 7. Additional findings as described above. ACT 112: Negative or not required by law. Electronically signed by: Lv Castro M.D. 08/03/2022 5:28 PM PG Care Time/CCT Total # of Minutes Spent Total Time Spent with Patient: Total time spent is greater than 50% in coordination of care (as documented) at patient's floor/unit and/or counseling patient: Coding Level of Care Code 75038 INT INP/OBS CARE 40MIN Diagnoses SBO (small bowel obstruction) K56.609
[2022-08-04] MEDS: traZODone HCL 100 MG TAB PO SCH (21:13)
--- NOTE | 2022-08-05 05:22 | Surgery Progress Note ---
Date of Service August 05, 2022 Assessment & Plan (1) SBO (small bowel obstruction): Plan: Patient has been admitted on the hospitalist service. We recommend proceeding as follows: Maintain patient on clear liquids until abdominal pain has improved Continue IV fluids until oral intake is adequate Analgesics as needed Antiemetics as needed Increase mobilization as able The primary service has ordered labs and a KUB for this morning; we will check when they become available Plan admitted for fall, poss partial sbo. bm yest with suppository. +rib pain, abd little upset after clears. kub pending. cont clears, conservative management. Admission and Anticipated Discharge Date Admission Date: August 03, 2022 Subjective Patient is resting comfortably in bed. He does note some minor abdominal pain. He denies any nausea or vomiting. He is passing flatus but has not had a bowel movement. He has tried some clear liquids but only small amounts due to his noted abdominal pain. Physical Exam Gastrointestinal (Abdomen): Abdomen is soft, nonrigid, nondistended. There is no rebound tenderness or guarding but patient did have pain with palpation greatest near the umbilicus. Results & Data Vital Signs (Past 12 Hours) Vital Signs Temp Pulse Pulse Resp BP BP Pulse Ox 08/05/22 04:00 36.9 C 80 20 141/62 H 93 08/04/22 22:01 78 08/04/22 23:37 37.0 C 78 20 159/69 H 93 08/04/22 18:33 36.7 C 83 20 158/69 H 96 O2 Del Method 08/05/22 04:00 Room Air 08/04/22 22:01 08/04/22 23:37 Room Air 08/04/22 18:33 Room Air PG Care Time/CCT Total # of Minutes Spent Total Time Spent with Patient: Total time spent is greater than 50% in coordination of care (as documented) at patient's floor/unit and/or counseling patient: Coding Level of Care Code 44001 SUB INP/OBS CARE 06/07MIN Diagnoses SBO (small bowel obstruction) K56.609
[2022-08-05 07:58] LABS: Hematocrit (blood only) 39.1 % (42.0-52.0); Hemoglobin 13.8 g/dl (14.0-18.0); Mean Corpuscular Hemoglobin 30.8 pg (25.0-34.0); Mean Corpuscular Hgb Conc 35.3 g/dL (32.0-36.0); Mean Corpuscular Volume 87.3 fL (80.0-100.0); Mean Platelet Volume 9.6 fL (9.4-12.4); Platelet Count 161 K/uL (130-400); RDW Coefficient of Variation 12.8 % (11.5-14.5); RDW Standard Deviation 40.6 fL (36.4-46.3); Red Blood Count 4.48 M/uL (4.70-6.10); White Blood Count 8.82 K/ul (4.8-10.8)
[2022-08-05 08:19] LABS: BUN Creatinine Ratio 14.7 (10-20); Calcium 8.6 mg/dl (8.6-10.3); Creatinine Clr Calc Pharmacy 59.5 ml/min; Est GFR (Non-African American) 64.7 ml/min; Magnesium 1.8 mg/dl (1.7-2.4); Phosphorus 2.1 mg/dl (2.5-4.9); Potassium 3.9 mmol/L (3.5-5.1)
[2022-08-05] MEDS: TAMSULOSIN HCL 0.4 MG CAP PO SCH (08:39)
[2022-08-05] MEDS: bisacodyL 10 MG SUPP PR SCH (08:39)
[2022-08-05] MEDS: amLODIPine BESYLATE 5 MG TAB PO SCH (08:40)
[2022-08-05] MEDS: FINASTERIDE 5 MG TAB PO SCH (08:40)
[2022-08-05] MEDS: LOSARTAN POTASSIUM 25 MG TAB PO SCH (08:40)
[2022-08-05] MEDS: ATORVASTATIN 20 MG TAB PO SCH (08:40)
[2022-08-05] MEDS: PANTOprazole 40 MG TAB PO SCH (08:40)
[2022-08-05] MEDS: ACETAMINOPHEN 325 MG TAB PO PRN ×2 (08:43→21:44)
[2022-08-05] MEDS: POT PHOSPHATE MONOBASIC W/ SOD TAB PO SCH ×4 (12:03→21:44)
--- NOTE | 2022-08-05 16:10 | Hospitalist Progress Note ---
Date of Service August 05, 2022 Assessment & Plan (1) Syncope and collapse: (2) Left rib fracture: (3) Gastric distention: (4) Dehydration: (5) CKD (chronic kidney disease), stage III: (6) HTN (hypertension): Plan 77 yr old M who presents to hospital with hx of HTN, HLD, BPH, history of small bowel obstruction, CKD stage III, osteoporosis, essential tremor, history of colon cancer s/p resection, chronic cough who presents to ED 08/03 due to syncopal episode and fall while standing followed by vomiting. He is being managed for the following: Syncope and collapse Admitting Head CT: Negative for acute abnormality Likely in setting of 2-day GI prep with evidence of dehydration on exam at presentation Possible vasovagal in nature as well given GI complaint Continue to monitor on telemetry, Continue IV hydration orthostatics - negative. Left anterior rib fracture, nondisplaced 3 through 6: 2/2 fall. Conservative treatment and pain control. Tylenol as needed, lidocaine patch and ice 3 times daily Gastric distention Low-grade chronic partial small bowel obstruction Nonspecific esophagitis as noted on CT with mild circumferential thickening of esophagus Hx of colon ca s/p sigmoid resection in 1996 Patient was prepped for colonoscopy but passed out [see above] prior to colonoscopy. Patient complaining of difficulty with bowel habits dating back over a year History of small bowel obstruction in the past and also noted chronic partial obstruction on CT General surgery did evaluate imaging and feels this is likely a gastroenterology issue and colonoscopy required continue omeprazole GI evaluated, appreciate recs. Maintain electrolytes normal limit, encourage ambulation, follow-up GI for EGD and colonoscopy in about 2 weeks. Sx on board - appreciate recs. Pt w/ small "flakes" of bowel movement today per pt. is moving gas. Multinodular thyroid goiter Incidental finding on CT which reveals posterior extension of the left thyroid lobe which is located posterior to the esophagus resulting in mild mass effect of esophagus. Pt and his mde aware during bedside exam. Patient will need referral to endocrinology and/or ENT as outpatient for further evaluation.TSH wnl. Pulmonary nodules: scattered few nodules up to 5mm, recommend repeat CT chest in 1 year, will need OP f/u for this Acute renal insufficiency over CKD stage III: Baseline creatinine 1.3, 1.57 at presentation, resolved. HTN: Fairly under control to borderline elevated, continue home amlodipine and losartan Dispo: tele, from home, upon surgical clearance. FULL CODE PCP:Jojo Admission and Anticipated Discharge Date Admission Date: August 03, 2022 Subjective Patient seen and examined at bedside as a follow-up of syncope and collapse likely vasovagal in nature and left anterior rib fracture secondary to fall and low-grade chronic partial small bowel obstruction. Patient was sitting up in chair, on room air, NAD, denies fever or headache or dizziness chills or sore throat or cough or belly pain, reports moving gas, had small "flakes" of bm yesterday and today per pt. Reports left chest pain. Physical Exam Physical Exam: GENERAL: Alert and oriented x3. NAD, on RA. HEENT: No pallor, no icterus. Pupils equal, round and reactive to light. Oral mucosa moist. NECK: No JVD, no neck masses. HEART: S1 and S2 heard. Regular rate and rhythm. No murmur, no gallop. Left chest tender; no open wound or laceration RESPIRATORY SYSTEM: Normal AP diameter. No accessory muscle use. No wheezing, no crackles. ABDOMEN: Soft, bowel sounds present, nontender, no distention. Old healed surgical scar noted. CENTRAL NERVOUS SYSTEM: No facial droop. Speech is clear. Obeys simple commands. Moves extremities. EXTREMITIES: No edema, no erythema seen. Results & Data Results & Data Vital Signs (Past 12 Hours) Vital Signs Temp Pulse Pulse Resp BP BP Pulse Ox 08/05/22 15:44 77 08/05/22 14:35 36.6 C 80 18 139/62 97 08/05/22 11:47 36.7 C 77 18 144/67 H 94 08/05/22 07:30 80 08/05/22 07:02 37.2 C 89 20 147/64 H 92 O2 Del Method 08/05/22 15:44 08/05/22 14:35 Room Air 08/05/22 11:47 Room Air 08/05/22 07:30 08/05/22 07:02 Room Air
--- NOTE | 2022-08-05 17:50 | XRay Report ---
KUB CLINICAL HISTORY: Follow-up small bowel obstruction. FINDINGS: 2 AP supine abdominal radiographs are compared to study dated 08/04/2022 and correlated with abdominal CT dated 08/03/2022. Cholecystectomy clips are noted in the right upper quadrant. Distended small bowel loops are similar to previous and suggest obstruction. These measure up to 5.5 cm in martell meter. No evidence of intraperitoneal free air is seen on these supine images. There are no abnormal abdominal calcifications. Phleboliths are seen throughout the pelvis. The skeletal structures are ost eopenic and appear intact. There is moderate lumbosacral spondylosis. IMPRESSION: Distended loops of small bowel are similar to yesterday and likely represent persistent o bstruction. Electronically signed by: Jered Roland M.D. 08/05/2022 5:48 PM
[2022-08-05] MEDS: LIDOCAINE 5% 1 PATCH TD SCH (21:43)
[2022-08-05] MEDS: traZODone HCL 100 MG TAB PO SCH (21:44)
[2022-08-05] MEDS: traMADol HCL 50 MG TABLET PO PRN (22:33)
--- NOTE | 2022-08-06 05:13 | Surgery Progress Note ---
Date of Service August 06, 2022 Assessment & Plan (1) SBO (small bowel obstruction): Plan: Patient has been admitted on the hospitalist service. We recommend proceeding as follows: KUB on 08/05/2022 showed concerns for persistent small bowel obstruction, however the patient notes he has had a bowel movement and is passing flatus. Consider advancing diet to full liquids this morning Continue IV fluids until oral intake is adequate Analgesics as needed Antiemetics as needed Increase mobilization as able Plan admitted for fall, poss partial sbo. bm yest with suppository. +rib pain, abd little upset after clears. kub pending. cont clears, conservative management. Admission and Anticipated Discharge Date Admission Date: August 03, 2022 Supervising Physician Co-Signing Physician Notes Patient seen and examined, agree with above. Passing some gas, tolerating clear liquids, will advance to full liquids. May need small bowel follow-through or CT with oral contrast if no significant improvement. Also recommend restarting bowel regimen. Subjective Patient is resting comfortably in bed. He notes he is tolerating clear liquids without worsening abdominal pain. He denies any nausea or vomiting and notes that over the past 24 hours he has been passing flatus and did have a small bowel movement. Physical Exam Gastrointestinal (Abdomen): Abdomen is soft and nondistended. There is minimal to no pain with palpation. Results & Data Vital Signs (Past 12 Hours) Vital Signs Temp Pulse Pulse Resp BP Pulse Ox O2 Del Method 08/06/22 04:06 36.7 C 73 20 161/71 H 92 Room Air 08/06/22 00:00 89 08/05/22 23:00 36.9 C 78 20 160/66 H 92 Room Air 08/05/22 19:20 36.6 C 84 18 124/64 94 Room Air PG Care Time/CCT Total # of Minutes Spent Total Time Spent with Patient: Total time spent is greater than 50% in coordination of care (as documented) at patient's floor/unit and/or counseling patient: Coding Level of Care Code 92599 SUB INP/OBS CARE 06/07MIN Diagnoses SBO (small bowel obstruction) K56.609
[2022-08-06 06:20] LABS: BUN Creatinine Ratio 13.7 (10-20); Calcium 8.3 mg/dl (8.6-10.3); Creatinine Clr Calc Pharmacy 63.6 ml/min; Est GFR (African American) 81.2 ml/min; Est GFR (Non-African American) 70.1 ml/min; Magnesium 1.8 mg/dl (1.7-2.4); Phosphorus 2.9 mg/dl (2.5-4.9); Potassium 3.5 mmol/L (3.5-5.1)
[2022-08-06] MEDS ORDERED: POTASSIUM CHLORIDE CRTAB 20 MEQ TABCR PO STA (07:59)
[2022-08-06] MEDS: POT PHOSPHATE MONOBASIC W/ SOD TAB PO SCH (08:27)
[2022-08-06] MEDS: LOSARTAN POTASSIUM 25 MG TAB PO SCH (08:27)
[2022-08-06] MEDS: FINASTERIDE 5 MG TAB PO SCH (08:27)
[2022-08-06] MEDS: amLODIPine BESYLATE 5 MG TAB PO SCH (08:28)
[2022-08-06] MEDS: bisacodyL 10 MG SUPP PR SCH (08:28)
[2022-08-06] MEDS: TAMSULOSIN HCL 0.4 MG CAP PO SCH (08:28)
[2022-08-06] MEDS: PANTOprazole 40 MG TAB PO SCH (08:28)
[2022-08-06] MEDS: ATORVASTATIN 20 MG TAB PO SCH (08:28)
[2022-08-06] MEDS: LACTATED RINGER'S 1,000 ML IV SCH ×2 (08:29→22:24)
[2022-08-06] MEDS: traMADol HCL 50 MG TABLET PO PRN ×2 (12:28→22:24)
[2022-08-06] MEDS: MAGNESIUM OXIDE 400 MG TAB PO SCH ×2 (12:28→22:23)
[2022-08-06] MEDS ORDERED: DICLOFENAC SOD 1% GEL 100 GM TUBE EXT PRN (15:48)
--- NOTE | 2022-08-06 15:49 | Hospitalist Progress Note ---
Date of Service August 06, 2022 Assessment & Plan (1) Syncope and collapse: (2) Left rib fracture: (3) Gastric distention: (4) Dehydration: (5) CKD (chronic kidney disease), stage III: (6) HTN (hypertension): Plan 77 yr old M who presents to hospital with hx of HTN, HLD, BPH, history of small bowel obstruction, CKD stage III, osteoporosis, essential tremor, history of colon cancer s/p resection, chronic cough who presents to ED 08/03 due to syncopal episode and fall while standing followed by vomiting. He is being managed for the following: Syncope and collapse Admitting Head CT: Negative for acute abnormality Likely in setting of 2-day GI prep with evidence of dehydration on exam at presentation Possible vasovagal in nature as well given GI complaint Continue to monitor on telemetry, Continue IV hydration orthostatics - negative. Left anterior rib fracture, nondisplaced 3 through 6: 2/2 fall. Conservative treatment and pain control. Tylenol as needed, lidocaine patch and ice 3 times daily. voltaren gel. Gastric distention Low-grade chronic partial small bowel obstruction Nonspecific esophagitis as noted on CT with mild circumferential thickening of esophagus Hx of colon ca s/p sigmoid resection in 1996 Patient was prepped for colonoscopy but passed out [see above] prior to colonoscopy. Patient complaining of difficulty with bowel habits dating back over a year History of small bowel obstruction in the past and also noted chronic partial obstruction on CT General surgery did evaluate imaging and feels this is likely a gastroenterology issue and colonoscopy required continue omeprazole GI evaluated, appreciate recs. Maintain electrolytes normal limit, encourage ambulation, follow-up GI for EGD and colonoscopy in about 2 weeks. Sx on board - appreciate recs. ADAT per Sx recs. On full liq diet today. Multinodular thyroid goiter Incidental finding on CT which reveals posterior extension of the left thyroid lobe which is located posterior to the esophagus resulting in mild mass effect of esophagus. Pt and his aware. Patient will need referral to endocrinology and/or ENT as outpatient for further evaluation.TSH wnl. Pulmonary nodules: scattered few nodules up to 5mm, recommend repeat CT chest in 1 year, will need OP f/u for this Acute renal insufficiency over CKD stage III: Baseline creatinine 1.3, 1.57 at presentation, resolved. HTN: Fairly under control to borderline elevated, continue home amlodipine and losartan Dispo: tele, from home, upon surgical clearance. FULL CODE PCP:Jojo Admission and Anticipated Discharge Date Admission Date: August 03, 2022 Subjective Patient seen and examined at bedside as a follow-up of syncope and collapse likely vasovagal in nature and left anterior rib fracture secondary to fall and low-grade chronic partial small bowel obstruction. Patient was sitting up in chair, on room air, NAD, denies fever or headache or dizziness chills or sore throat or cough or belly pain, reports moving gas, had small bm yesterday. Reports left chest pain fairly under control. Physical Exam Physical Exam: GENERAL: Alert and oriented x3. NAD, on RA. HEENT: No pallor, no icterus. Pupils equal, round and reactive to light. Oral mucosa moist. NECK: No JVD, no neck masses. HEART: S1 and S2 heard. Regular rate and rhythm. No murmur, no gallop. Left chest tender; no open wound or laceration RESPIRATORY SYSTEM: Normal AP diameter. No accessory muscle use. No wheezing, no crackles. ABDOMEN: Soft, bowel sounds present, nontender, no distention. Old healed surgical scar noted. CENTRAL NERVOUS SYSTEM: No facial droop. Speech is clear. Obeys simple commands. Moves extremities. EXTREMITIES: No edema, no erythema seen. Results & Data Results & Data Vital Signs (Past 12 Hours) Vital Signs Temp Pulse Pulse Resp BP BP Pulse Ox 08/06/22 15:35 80 08/06/22 15:07 36.8 C 78 20 141/61 H 92 08/06/22 11:09 36.7 C 72 20 155/69 H 95 08/06/22 08:06 37.0 C 74 20 153/71 H 92 08/06/22 07:25 78 08/06/22 04:06 36.7 C 73 20 161/71 H 92 O2 Del Method 08/06/22 15:35 08/06/22 15:07 Room Air 08/06/22 11:09 Room Air 08/06/22 08:06 Room Air 08/06/22 07:25 08/06/22 04:06 Room Air
[2022-08-06] MEDS: traZODone HCL 100 MG TAB PO SCH (22:23)
[2022-08-06] MEDS: LIDOCAINE 5% 1 PATCH TD SCH (22:23)
[2022-08-07] MEDS: MAGNESIUM OXIDE 400 MG TAB PO SCH ×2 (07:51→21:10)
[2022-08-07] MEDS: PANTOprazole 40 MG TAB PO SCH (07:51)
[2022-08-07] MEDS: LOSARTAN POTASSIUM 25 MG TAB PO SCH (07:51)
[2022-08-07] MEDS: amLODIPine BESYLATE 5 MG TAB PO SCH (07:51)
[2022-08-07] MEDS: ATORVASTATIN 20 MG TAB PO SCH (07:51)
[2022-08-07] MEDS: TAMSULOSIN HCL 0.4 MG CAP PO SCH (07:51)
[2022-08-07] MEDS: FINASTERIDE 5 MG TAB PO SCH (07:52)
[2022-08-07] MEDS: ACETAMINOPHEN 325 MG TAB PO PRN (07:54)
[2022-08-07 08:34] LABS: BUN Creatinine Ratio 12.9 (10-20); Creatinine Clr Calc Pharmacy 69.7 ml/min; Est GFR (African American) 90.8 ml/min; Est GFR (Non-African American) 78.4 ml/min; Magnesium 1.9 mg/dl (1.7-2.4); Potassium 3.5 mmol/L (3.5-5.1)
[2022-08-07] MEDS: POLYETHYLENE (MIRALAX) 17 GM PACK PO SCH (10:02)
--- NOTE | 2022-08-07 10:13 | XRay Report ---
KUB HISTORY: Small bowel obstruction. Follow-up. COMPARISON: KUB 08/05/2022. FINDINGS: There is an adjacent multiple dilated gas-filled loops of small bowel seen throughout the a bdomen. This favors a persistent small bowel obstruction. Bilateral nephrolithiasis again noted.. No ureteral calculi. Calcifications in the deep pelvis likely represent phleboliths. Prior cholecystect natan. No pneumoperitoneum or pneumatosis. IMPRESSION: 1. No change in the dilated gas-filled loops of small bowel. This may represent a persistent small nayla wel obstruction. 2. Bilateral nephrolithiasis. ACT 112: Negative or not required by law. Electronically signed by: Lv Castro M.D. 08/07/2022 10:11 AM
[2022-08-07] MEDS: bisacodyL 10 MG SUPP PR SCH (12:33)
--- NOTE | 2022-08-07 17:36 | Hospitalist Progress Note ---
Date of Service August 07, 2022 Assessment & Plan (1) Syncope and collapse: (2) Left rib fracture: (3) Gastric distention: (4) Dehydration: (5) CKD (chronic kidney disease), stage III: (6) HTN (hypertension): Plan 77 yr old M who presents to hospital with hx of HTN, HLD, BPH, history of small bowel obstruction, CKD stage III, osteoporosis, essential tremor, history of colon cancer s/p resection, chronic cough who presents to ED 08/03 due to syncopal episode and fall while standing followed by vomiting. He is being managed for the following: Syncope and collapse Admitting Head CT: Negative for acute abnormality Likely in setting of 2-day GI prep with evidence of dehydration on exam at presentation Possible vasovagal in nature as well given GI complaint Continue to monitor on telemetry orthostatics - negative. Left anterior rib fracture, nondisplaced 3 through 6: 2/2 fall. Conservative treatment and pain control. Tylenol as needed, lidocaine patch and ice 3 times daily. voltaren gel. Pt reports improving pain control. Gastric distention Low-grade chronic partial small bowel obstruction Nonspecific esophagitis as noted on CT with mild circumferential thickening of esophagus Hx of colon ca s/p sigmoid resection in 1996 Patient was prepped for colonoscopy but passed out [see above] prior to colonoscopy. Patient complaining of difficulty with bowel habits dating back over a year History of small bowel obstruction in the past and also noted chronic partial obstruction on CT General surgery did evaluate imaging and feels this is likely a gastroenterology issue and colonoscopy required continue omeprazole GI evaluated, appreciate recs. Maintain electrolytes normal limit, encourage ambulation, follow-up GI for EGD and colonoscopy in about 2 weeks. Sx on board - appreciate recs. ADAT per Sx recs. On full liq diet today. Better BM yesterday per pt, KUB w/ no improvement. Multinodular thyroid goiter Incidental finding on CT which reveals posterior extension of the left thyroid lobe which is located posterior to the esophagus resulting in mild mass effect of esophagus. Pt and his aware. Patient will need referral to endocrinology and/or ENT as outpatient for further evaluation.TSH wnl. Pulmonary nodules: scattered few nodules up to 5mm, recommend repeat CT chest in 1 year, will need OP f/u for this Acute renal insufficiency over CKD stage III: Baseline creatinine 1.3, 1.57 at presentation, resolved. HTN: Fairly under control to borderline elevated, continue home amlodipine and losartan Dispo: tele, from home, upon surgical clearance. FULL CODE PCP:Jojo Admission and Anticipated Discharge Date Admission Date: August 03, 2022 Subjective Patient seen and examined at bedside as a follow-up of syncope and collapse likely vasovagal in nature and left anterior rib fracture secondary to fall and low-grade chronic partial small bowel obstruction. Patient was sitting up in chair, on room air, NAD, denies fever or headache or dizziness chills or sore throat or cough or belly pain, reports moving gas, had better BM yesterday. Reports left chest pain fairly under control. Physical Exam Physical Exam: GENERAL: Alert and oriented x3. NAD, on RA. HEENT: No pallor, no icterus. Pupils equal, round and reactive to light. Oral mucosa moist. NECK: No JVD, no neck masses. HEART: S1 and S2 heard. Regular rate and rhythm. No murmur, no gallop. Left chest tender; no open wound or laceration RESPIRATORY SYSTEM: Normal AP diameter. No accessory muscle use. No wheezing, no crackles. ABDOMEN: Soft, bowel sounds present, nontender, no distention. Old healed surgical scar noted. CENTRAL NERVOUS SYSTEM: No facial droop. Speech is clear. Obeys simple commands. Moves extremities. EXTREMITIES: No edema, no erythema seen. Results & Data Results & Data Vital Signs (Past 12 Hours) Vital Signs Temp Pulse Pulse Resp BP Pulse Ox O2 Del Method 08/07/22 15:06 36.6 C 72 20 136/70 93 Room Air 08/07/22 11:06 36.6 C 78 18 118/67 94 Room Air 08/07/22 07:58 36.7 C 75 20 159/67 H 91 Room Air 08/07/22 07:40 69
[2022-08-07] MEDS: traMADol HCL 50 MG TABLET PO PRN (21:09)
[2022-08-07] MEDS: LIDOCAINE 5% 1 PATCH TD SCH (21:10)
[2022-08-07] MEDS: traZODone HCL 100 MG TAB PO SCH (21:10)
[2022-08-07] MEDS ORDERED: POLYETHYLENE (MIRALAX) 17 GM PACK PO STA (21:19)
[2022-08-07] MEDS ORDERED: LACTULOSE SYRUP 20 GM/30 ML UDC PO STA (21:20)
[2022-08-07] MEDS: DOCUSATE SODIUM/SENNA 50/8.6MG TAB PO SCH (21:43)
[2022-08-08] MEDS: DOCUSATE SODIUM/SENNA 50/8.6MG TAB PO SCH (08:15)
[2022-08-08] MEDS: TAMSULOSIN HCL 0.4 MG CAP PO SCH (08:15)
[2022-08-08] MEDS: PANTOprazole 40 MG TAB PO SCH (08:15)
[2022-08-08] MEDS: POLYETHYLENE (MIRALAX) 17 GM PACK PO SCH (08:15)
[2022-08-08] MEDS: MAGNESIUM OXIDE 400 MG TAB PO SCH (08:15)
[2022-08-08] MEDS: LOSARTAN POTASSIUM 25 MG TAB PO SCH (08:15)
[2022-08-08] MEDS: FINASTERIDE 5 MG TAB PO SCH (08:15)
[2022-08-08] MEDS: bisacodyL 10 MG SUPP PR SCH (08:16)
[2022-08-08] MEDS: ATORVASTATIN 20 MG TAB PO SCH (08:16)
[2022-08-08] MEDS: amLODIPine BESYLATE 5 MG TAB PO SCH (08:16)
[2022-08-08 08:31] LABS: BUN Creatinine Ratio 8.3 (10-20); Creatinine Clr Calc Pharmacy 67.5 ml/min; Est GFR (African American) 87.4 ml/min; Est GFR (Non-African American) 75.4 ml/min; Potassium 3.7 mmol/L (3.5-5.1)
[2022-08-08] MEDS ORDERED: POTASSIUM CHLORIDE CRTAB 20 MEQ TABCR PO STA (08:45)
--- NOTE | 2022-08-08 11:55 | Surgery Progress Note ---
Date of Service August 08, 2022 Assessment & Plan (1) SBO (small bowel obstruction): Plan: Pt here with concern for partial SBO He is since been advanced to low fiber. Tolerating well Denies pain, nausea/vomiting. Continues to pass flatus and have BMs Will need re-scheduled for colonoscopy as outpatient No need to f/u with us Will sign off, call back if any questions/concerns Admission and Anticipated Discharge Date Admission Date: August 03, 2022 Supervising Physician Co-Signing Physician Notes agree with above. tolerating diet, having bm's. d/c on low fiber, plan for outpatient colonoscopy. retunr precautions given. Subjective Patient feeling better. Tolerating low fiber diet. No pain/n/v. He is passing flatus and having BMs Physical Exam Physical Exam: awake/alert, no distress Respiratory: normal respiratory effort Gastrointestinal (Abdomen): Percussion/Palpation: abdomen soft; abdomen nontender Results & Data Vital Signs (Past 12 Hours) Vital Signs Temp Pulse Pulse Resp BP BP Pulse Ox 08/08/22 11:40 36.8 C 76 18 150/76 H 93 08/08/22 11:07 37.1 C 78 18 133/69 158/79 H 93 08/08/22 08:00 08/08/22 08:00 77 08/08/22 07:37 37.1 C 78 18 158/79 H 93 08/08/22 03:00 36.7 C 79 18 179/68 H 92 O2 Del Method 08/08/22 11:40 Room Air 08/08/22 11:07 08/08/22 08:00 Room Air 08/08/22 08:00 08/08/22 07:37 Room Air 08/08/22 03:00 Room Air PG Care Time/CCT Total # of Minutes Spent Total Time Spent with Patient: Total time spent is greater than 50% in coordination of care (as documented) at patient's floor/unit and/or counseling patient: Coding Level of Care Code 66756 SUB INP/OBS CARE 125MIN Diagnoses SBO (small bowel obstruction) K56.609
--- NOTE | 2022-08-08 14:25 | Discharge Summary ---
Date of Service August 08, 2022 Admission HPI Per Admitting Provider This is a 77 yr old M who presents to hospital with hx of HTN, HLD, BPH, history of small bowel obstruction, CKD stage III, osteoporosis, essential tremor, history of colon cancer status postresection, chronic cough who presents to ED due to syncopal episode and fall earlier today. He has been having difficulty since September of 2021. He has hx of colon cancer and had bowel resection in 1996. In 2012 he has hx of bowel obstruction that hospitalized him for 21 days. He is now taking miralax 4 x a day to move his bowels. Stool is mostly liquid with "flakes and size of corn." He has not had a formed stool in well over a year. He went to PCP and he suggested a colonoscopy. He has been under bowel prep the past 2 days. He has been using PEG with gatorade and ducolax. Despite all of this he hasn't had much of a bowel movement. He was suppose to have colonoscopy today. This morning he had a syncopal episode when he was getting his medicine. The room started spinning and he was grabbing for something to sit down and he blacked out before he could grab anything. Next thing he knew he was on floor. He now complains of left-sided chest discomfort with coughing. states he has been weak w/o eating the past 2 days. When saw him he was awake but pt was confused and couldn't figure out what was going on. He was suppose to be seen by Dr. Sweeney today and undergo colonoscopy, but was instead referred to ED. He denies f/c/s, chest pain, sob, cough, n/v/d, abd pain, change in bowel or urinary habits. He has urinary hesitancy at baseline but his urine output has reduced due to lack of intake. In ED patient made hemodynamically stable and mildly hypertensive. He is awaiting colonoscopy as he is frustrated for dealing with symptoms over the last 9 months to a year. Lab work notable for leukocytosis 15.7k, H&H 15.7 and 45.0, sodium 133, chloride 95, BUN 24, creatinine 1.57 glucose 139, & TSH WNL. In ED he went further imaging work-up and CT revealed acute nondisplaced left anterior third through 6 rib fractures without pneumothorax. A multinodular thyroid goiter with posterior extension of left thyroid lobe which is located posterior to the esophagus and also results in mild mass effect of esophagus. Mild circumferential thickening of the esophagus is suggestive of nonspecific esophagitis, distended and fluid-filled stomach which is better appreciated on same-day CT. Few scattered subcentimeter pulmonary nodules measuring up to [address] abdomen pelvis revealed mildly distended fluid-filled stomach and proximal small bowel which likely due to colonoscopy prep, no apparent transition point to suggest small bowel obstruction but intestinal malrotation is again noted. Admission Exam Per Admitting Provider General: Elderly man in no distress Eyes: PERRL, conjunctivae normal, not pale, anicteric sclerae, EOM intact bilaterally ENMT: External ear and nose normal, oropharynx normal Respiratory: Normal respiratory effort, no respiratory distress, lungs clear to auscultation, no crackles and no wheezes Cardiovascular: RRR S1 S2 Chest (Breasts): Tenderness over left lower rib cage Gastrointestinal (Abdomen): Abdomen is not distended, soft, non-tender to palpation, no guarding, no palpable hepatosplenomegaly, normal bowel sounds Musculoskeletal: No pedal edema Neurologic: Alert and oriented x 3, No focal weakness, sensation grossly intact Psychiatric: Euthymic affect Principal Diagnosis Syncope and collapse, possible vasovagal in nature. Left anterior rib fracture, nondisplaced rib through 2 to 6 secondary to fall Low-grade chronic partial small bowel obstruction Multinodular thyroid goiter Pulmonary nodules Acute renal insufficiency over CKD stage III, resolved Discharge Exam GENERAL: Alert and oriented x3. NAD, on RA. HEENT: No pallor, no icterus. Pupils equal, round and reactive to light. Oral mucosa moist. NECK: No JVD, no neck masses. HEART: S1 and S2 heard. Regular rate and rhythm. No murmur, no gallop. Left chest tender; no open wound or laceration RESPIRATORY SYSTEM: Normal AP diameter. No accessory muscle use. No wheezing, no crackles. ABDOMEN: Soft, bowel sounds present, nontender, no distention. Old healed surgical scar noted. CENTRAL NERVOUS SYSTEM: No facial droop. Speech is clear. Obeys simple commands. Moves extremities. EXTREMITIES: No edema, no erythema seen. Discharge Data Allergies Allergy/AdvReac Type Severity Reaction Status Date / Time No Known Allergies Allergy Unverified 08/03/22 17:41 Consultations 08/03/22 18:10 ED Decision to Admit Stat 08/03/22 21:35 Consult Gastroenterology Routine 08/04/22 15:30 Consult General Surgery Routine Ordered Studies 08/03/22 15:18 CT abd pelvis IV con only Stat CT chest diagnostic w con Stat CT head/brain wo con Stat Hospital Course (1) Syncope and collapse: (2) Left rib fracture: (3) Gastric distention: (4) Dehydration: (5) CKD (chronic kidney disease), stage III: (6) HTN (hypertension): Plan 77 yr old M who presents to hospital with hx of HTN, HLD, BPH, history of small bowel obstruction, CKD stage III, osteoporosis, essential tremor, history of colon cancer s/p resection, chronic cough who presents to ED 08/03 due to syncopal episode and fall while standing followed by vomiting. He was managed for the following: Syncope and collapse Admitting Head CT: Negative for acute abnormality Likely in setting of 2-day GI prep with evidence of dehydration on exam at presentation Possible vasovagal in nature as well given GI complaint Continue to monitor on telemetry orthostatics - negative. Pt stable, further complaints. Left anterior rib fracture, nondisplaced 3 through 6: 2/2 fall. Conservative treatment and pain control. Tylenol as needed, lidocaine patch and ice 3 times daily. voltaren gel. Pt reports improving pain control. Gastric distention Low-grade chronic partial small bowel obstruction Nonspecific esophagitis as noted on CT with mild circumferential thickening of esophagus Hx of colon ca s/p sigmoid resection in 1996 Patient was prepped for colonoscopy but passed out [see above] prior to colonoscopy. Patient complaining of difficulty with bowel habits dating back over a year History of small bowel obstruction in the past and also noted chronic partial obstruction on CT General surgery did evaluate imaging and feels this is likely a gastroenterology issue and colonoscopy required continue omeprazole GI evaluated, appreciate recs. Maintain electrolytes normal limit, encourage ambulation, follow-up GI for EGD and colonoscopy in about 2 weeks. Sx on board - appreciate recs. can dc on low fiber diet from their POV. Patient with small BMs, no belly pain, appears tolerating low fiber diet. Multinodular thyroid goiter Incidental finding on CT which reveals posterior extension of the left thyroid lobe which is located posterior to the esophagus resulting in mild mass effect of esophagus. Pt and his aware. Patient will need referral to endocrinology and/or ENT as outpatient for further evaluation.TSH wnl. Pulmonary nodules: scattered few nodules up to 5mm, recommend repeat CT chest in 1 year, will need OP f/u for this Acute renal insufficiency over CKD stage III: Baseline creatinine 1.3, 1.57 at presentation, resolved. HTN: Fairly under control to borderline elevated, continue home amlodipine and losartan Dispo: tele, from home, upon surgical clearance. FULL CODE PCP:Jojo Patient being discharged to home with following instruction at the point of discharge: Follow-up with your primary care physician within a week time and likely you will need labs CBC/CMP/magnesium/phosphorus. Surgery evaluated you while in the hospital, recommended you to be discharged on low fiber diet and recommended that you will need colonoscopy with the GI office. Also recommended that no need to follow-up with surgery at this point unless new issues arises that warrants surgery eval. Follow-up with your GI doctor in 2 weeks time for colonoscopy and further evaluation. For your left anterior rib pain, you can use [id number] Tylenol for mild pain and lidocaine patch 4% [id number] for moderate to severe pain. When not using lidocaine patches, you can also use Voltaren gel locally up to 3-4 times a day, it is also available [id number]. For abnormal CT scan which showed thyroid goiter compressing mildly into your esophagus, you will need to follow-up with endocrinology and/or ENT as an outpatient. Coordinate with your PCP office for referral. Also for your lung nodules measuring up to 5 mm, you will need repeat CT scan of the chest in 1 year. Coordinate with your PCP office for setting up this test. Take your medications as prescribed. Please make sure that you are able to get your medications today by calling your pharmacy before you leave the hospital so that your treatment continuity is not broken. Home Health Attestation I certify that this patient is under my care and that I, or a physicians treasury assistant working with me, had a face to-face encounter that meets the home health [id number] encounter requirements with this patient. The encounter with the patient was in whole, or in part, for the following medical condition, which is the primary reason for home health care (list medical condition): I certify that, based on my findings, the following services are medically necessary home health services: My clinical findings support the need for the above services because: Further, I certify that my clinical findings support that this patient is homebound (i.e. absences from home require considerable and taxing effort and are for medical reasons or scientology services or infrequently or of short durat ion when for other reasons) because: Certification for Home Health Services: Based on the above findings, I certify that this patient is confined to the home and needs intermittent intermediate care, physical therapy and/or speech therapy or continues to need occupational therapy. The patient is under my care, and I have initiated the establishment of the plan of care. This patient will be followed by a physician who will periodically review the plan of care. Total Time Total Time Spent Total Time Spent (In Minutes): 45 Discharge Plan Discharge Items Patient Disposition: Home - Self-Care Reason For Visit: FALL, SYNCOPE, DIARRHEA Discharge Diagnosis: Syncope and collapse, possible vasovagal in nature. Left anterior rib fracture, nondisplaced rib through 2 to 6 secondary to fall Low-grade chronic partial small bowel obstruction Multinodular thyroid goiter Pulmonary nodules Acute renal insufficiency over CKD stage III, resolved Activity: Resume your previous activity Non-emergency contact: Primary Care Provider Call non-emergency contact if: you have any medication questions, your symptoms worsen and your pain is unusual for you Follow-up/Referrals: Candelario Sweeney MD [Physician] - (The gastroenterology office will call you to reschedule your colonoscopy.) Pankaj Uribe MD [Primary Care Provider] - (Date & Time 08/15/2022 10:20 AM Provider Pankaj Uribe MD [facility] ) Diet: Heart Healthy and Low Fiber Diet Texture: Easy to Chew Addtl Attending Provider Instructions: Follow-up with your primary care physician within a week time and likely you will need labs CBC/CMP/magnesium/phosphorus. Surgery evaluated you while in the hospital, recommended you to be discharged on low fiber diet and recommended that you will need colonoscopy with the GI office. Also recommended that no need to follow-up with surgery at this point unless new issues arises that warrants surgery eval. Follow-up with your GI doctor in 2 weeks time for colonoscopy and further evaluation. For your left anterior rib pain, you can use [id number] Tylenol for mild pain and lidocaine patch 4% [id number] for moderate to severe pain. When not using lidocaine patches, you can also use Voltaren gel locally up to 3-4 times a day, it is also available [id number]. For abnormal CT scan which showed thyroid goiter compressing mildly into your esophagus, you will need to follow-up with endocrinology and/or ENT as an outpatient. Coordinate with your PCP office for referral. Also for your lung nodules measuring up to 5 mm, you will need repeat CT scan of the chest in 1 year. Coordinate with your PCP office for setting up this test. Take your medications as prescribed. Please make sure that you are able to get your medications today by calling your pharmacy before you leave the hospital so that your treatment continuity is not broken. Pending Studies at Discharge: No Stand-Alone Forms: [facility], Smoking Cessation Medications and DC Order Prescriptions: New diclofenac sodium [Voltaren Arthritis Pain] 1 % Gel 4 g EXT Q6H PRN (Reason: moderate pain (scale score 5-6)) Qty: 100 0RF Rx Instructions: left lower and anterior chest application upto every six hours. tramadol 50 mg Tablet 50 mg PO Q8H PRN (Reason: severe pain (scale score 7-10)) 3 Days Qty: 9 0RF bisacodyl 10 mg Suppository 10 mg GA DAILY Qty: 50 0RF magnesium oxide 400 mg (241.3 mg magnesium) Tablet 400 mg PO DAILY Qty: 30 0RF polyethylene glycol 3350 [Miralax] 17 gram Powder In Packet 17 g PO DAILY Qty: 30 0RF sennosides-docusate sodium [Senokot-S] 8.6-50 mg Tablet 1 tab PO BID Qty: 60 0RF Continued trazodone 50 mg tablet 100 mg PO HS losartan 25 mg tablet 25 mg PO DAILY omeprazole 20 mg capsule,delayed release(DR/EC) 20 mg PO DAILY aspirin [Aspirin Low-Strength] 81 mg Tablet,Delayed Release (Dr/Ec) 81 mg PO SUFR atorvastatin 20 mg tablet 20 mg PO DAILY amlodipine 5 mg tablet 5 mg PO DAILY tamsulosin 0.4 mg capsule 0.4 mg PO DAILY finasteride 5 mg tablet 5 mg PO DAILY omega 0-pkh-qat-fish oil [Fish Oil] 1,000 mg (120 mg-180 mg) Capsule 1 cap PO DAILY Discharge Orders: Discharge Order (Routine); Ordered 08/08/22 Ordered By: Damien Quinn Admission Data Admit Date/Time: 08/03/22 18:50 Attending Provider: Damien Quinn Admit Provider: Gretchen Cheng I. Primary Care Provider: Pankaj Uribe Other Providers: Gretchen Cheng I. ; Tanner Horner ; Quan Magaña ; Pankaj Dong ; Cinthia Key ; Leslie Smart ; Dilan Kahn ; Ronaldo Watts ; Rocío Vann ; Megan Hall ; Les Doherty Jr ; Meka Patricio ; Reid Conway ; Rere Sharma Other Interventions: Discharge Summary Assessment (RN) Last Done: 08/08/22 13:33
== END 2022-08-08 15:04 | disposition home or self-care (01) | DRG 389 ==
LOC: ED 14:33 → 2N 18:50 → SUATTDRO 18:50 → 2N 20:41